=== PATIENT | female | born 1940 | race Caucasian/White ===

== ENCOUNTER 2018-12-03 09:15 | Observation (INO) | payer OTHER ==
--- OUTSIDE RECORDS SUMMARY | 2018-12-03 09:18 | XMS REPORT | Clinical Summary ---
:1940 Author Organization [facility] [employer] Address [address] [place] [address] Care Team Providers Name Role Phone Natalya Lovett MD Primary Care Provider Allergies No Known Allergies Medications Medication Sig Dispensed Refills Start Date End Date Status losartan (COZAAR) 25 Take 25 mg by mouth 1 02/10/2016 Active MG tablet every morning. ipratropium-albuterol Take 3 mL by 0 Active (DUO-NEB) 0.5-2.5 nebulization Every mg/mL nebulizer 4 hours while awake as needed (RT) for wheezing or shortness of breath. Every 4 to 6 hrs prn FERROUS SULFATE (IRON Take 65 mg by mouth 0 Active ORAL) 2 (two) times a day with meals. albuterol (PROAIR Inhale 2 puffs 0 Active HFA,PROVENTIL every 4 (four) HFA,VENTOLIN HFA) 90 hours as needed for mcg/actuation inhaler wheezing or shortness of breath. calcium Take 1 tablet by 0 Active carbonate-vitamin D3 mouth 2 (two) times (CALCIUM 600 + D,3,) a day. 600 mg(1,500mg) -400 unit per tablet CHOLECALCIFEROL, Take 800 tablets by 0 Active VITAMIN D3, (VITAMIN mouth daily. D3 ORAL) beclomethasone (QVAR) Inhale 1 puff 2 0 Active 80 mcg/actuation (two) times a day. inhaler escitalopram TAKE 1 TABLET(10 30 tablet 0 05/15/2017 Active (LEXAPRO) 10 MG MG) BY MOUTH DAILY tabletIndications: Recurrent major depressive disorder, remission status unspecified (HCC) Active Problems Problem Noted Date Asthma exacerbation 11/28/2016 Hair loss 05/18/2016 Encounters Date Type Specialty Care Team Description 04/25/2018 Transcribe Orders Access Natalya Lovett Breast cancer MD Shannen screening (Primary Dx) 03/07/2018 Refill Internal Medicine [facility], Recurrent major MD Angelique depressive disorder, remission status unspecified after 12/02/2017 Immunizations Name Dates Previously Given Next Due Influenza Trivalent 05/15/2015 Pneumococcal Conjugate 13-Valent 05/15/2015 Social History Tobacco Use Types Packs/Day Years Used Date Never Smoker Smokeless Tobacco: Never Used Alcohol Use Drinks/Week oz/Week Comments No Sex Assigned at Date Recorded Not on file Job Start Date Occupation Industry Not on file Not on file Not on file Travel History Travel Start Travel End No recent travel history available. Last Filed Vital Signs Not on file Plan of Treatment Health Maintenance Due Date Last Done Comments SHINGLES VACCINES (#1) 1988 65+ PNEUMOCOCCAL VACCINE (2 of 2 - PPSV23) 05/15/2016 05/15/2015 INFLUENZA VACCINE 04/04/2018 05/15/2015 PNEUMOCOCCAL POLYSACCHARIDE VACCINE AGE 65 AND OVER Completed 05/15/2015 Results Not on fileafter 12/02/2017 Insurance Payer Benefit Plan / Group Subscriber ID Type Phone Address MEDICARE MEDICARE PART A AND B xxxxxxxxxx Medicare [place], [place] Guarantor Name Account Type Relation to Date of Phone Billing Patient Address Sahra High Personal/Family Self 1940 [address] ([address]) [address] [place] [address] Sahra High Personal/Family Self 1940 [address] [place] [address] Sahra High Personal/Family Self 1940 [address] ([address] [place] [address] Advance Directives Patient has advance care planning documents on file. For more information, please contact:[place] [address]
--- OUTSIDE RECORDS SUMMARY | 2018-12-03 09:18 | XMS REPORT ---
:1940 Author Organization [facility] Address [address] [place] [address] Care Team Providers Name Role Phone Unavailable Unavailable Unavailable Payers Payer Name Policy Type Policy Number Effective Date Expiration Date Problems This patient has no known problems. Allergies, Adverse Reactions, Alerts Allergy Allergy Status Severity Reaction(s) Onset Inactive Treating Comments Name Type Date Date Clinician No Known DA Active U 2018-0619 00:00:0 0 CEFIDINE DA Active U 2016-03 00:00:0 0 Medications This patient has no known medications.
--- OUTSIDE RECORDS SUMMARY | 2018-12-03 09:18 | XMS REPORT ---
:1940 Author Organization [employer] Care Team Providers Name Role Phone Nilesh Galloway Provider Role Unavailable Allergies, Adverse Reactions, Alerts Substance Reaction Event Type N.K.D.A. 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 Active of extremities with intermittent claudication, bilateral legs Assessment Precordial pain R07.2 Active Medications Medication Code Code Instructions Start End Status Dosage System Date Date Ventolin HFA [facility] [id number] 108 (90 Base) Active 2 puffs as MCG/ACT needed Inhalation every 4 hrs Albuterol NDC 0 Active not defined Losartan ND 02336909947 25 MG Orally Active 1 tablet Potassium twice a day (bid) (take night dose if systolic BP is over 150) Lexapro ND 33740563213 10 MG Orally Active 1 tablet Once a day Nebulizer NDC 0 Oral Active 1 tab Vital Signs Date/Time: November 21, 2016 BMI 19.53 Index Weight 100 lbs Height 5'0 in Cardiac Monitoring Heart Rate 92 /min Blood Pressure Diastolic 78 mm Hg Blood Pressure Systolic 128 mm Hg Results No Known Results Summary Purpose eClinicalWorks Submission
--- OUTSIDE RECORDS SUMMARY | 2018-12-03 09:18 | XMS REPORT | Continuity of Care Document ---
:1940 Author Organization Interface Problems Problem Status Onset Classification Date Comments Source Date Reported Uncomplicated Active Problem 07/18/2017 Ahmed asthma, unspecified Ahmed asthma severity Atheroscler-limb&cla Active Problem 07/18/2017 Ahmed udic Ahmed Benign hypertensive Active Problem 07/18/2017 Ahmed heart disease Ahmed without congestive heart failure Other symptoms Active Diagnosis 07/18/2017 Ahmed involving Ahmed cardiovascular system Atherosclerosis of Active Diagnosis 07/18/2017 Ahmed [place] [facility] extremities with intermittent claudication, bilateral legs Precordial pain Active Diagnosis 07/18/2017 Ahmed Ahmed Depression, Active Diagnosis 07/18/2017 Ahmed unspecified Ahmed depression type Abnormal Active Diagnosis 07/18/2017 Ahmed electrocardiogram Ahmed Medications Medication Details Route Status Patient Ordering Order Source Instructions Provider Date Ventolin HFA 2 puffs as Inhalation Active 108 (90 Base) Ahmed Ahmed needed MCG/ACT Ahmed Inhalation every 4 hrs Albuterol not NA Active Ahmed Ahmed defined Ahmed Losartan 1 tablet Orally Active 25 MG Orally Ahmed Ahmed Potassium twice a day Ahmed (bid) (take night dose if systolic BP is over 150) Lexapro 1 tablet Orally Active 10 MG Orally Ahmed Ahmed Once a day Ahmed Nebulizer 1 tab Oral Active Oral Ahmed Ahmed Ahmed Allergies, Adverse Reactions, Alerts Substance Category Reaction Severity Reaction Status Date Comments Source type Reported N.K.D.A. Adverse Info Not Adverse Active Ahmed Reaction Available Reaction 7 Ahmed Immunizations Immunization Date Given Site Status Last Updated Comments Source Results Order Results Value Reference Date Interpretation Comments Source Name Range Vital Signs Vital Sign Value Date Comments Source Weight 100 11/21/2016 Ahmed Ahmed Heart Rate 92 11/21/2016 Ahmed Ahmed Diastolic (mm Hg) 78 11/21/2016 Ahmed Ahmed Systolic (mm Hg) 128 11/21/2016 Ahmed Ahmed Weight 100 10/19/2016 Ahmed Ahmed Heart Rate 69 10/19/2016 Ahmed Ahmed Diastolic (mm Hg) 72 10/19/2016 Ahmed Ahmed Systolic (mm Hg) 104 10/19/2016 Nilesh Galloway Encounters Location Location Encounter Encounter Reason Attending ADM DC Status Source Details Type Number For Provider Date Date Visit Outpatient [id number] [facility] 12[facility]15 [facility] Outpatient [id number] [facility] 12[facility]21 [facility] Outpatient [id number] [facility] 02[facility]09 [facility] [place] Procedures Procedure Code Date Perfomer Comments Source
--- OUTSIDE RECORDS SUMMARY | 2018-12-03 09:18 | XMS REPORT ---
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
--- OUTSIDE RECORDS SUMMARY | 2018-12-03 09:18 | XMS REPORT ---
:1940 Author Organization [employer] Care Team Providers Name Role Phone Nilesh Galloway Provider Role Unavailable Allergies, Adverse Reactions, Alerts Substance Reaction Event Type N.K.D.A. 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 without congestive heart failure Assessment Other symptoms involving R09.89 Active cardiovascular system Assessment 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 Assessment Precordial pain R07.2 Active Assessment Abnormal electrocardiogram R94.31 Active Medications Medication Code Code Instructions Start End Status Dosage System Date Date Albuterol NDC 0 Active not defined Lexapro NDC 72127778978 10 MG Orally Active 1 tablet Once a day Losartan NDC 88692597490 25 MG Orally Active 1 tablet Potassium twice a day (bid) (take night dose if systolic BP is over 150) Ventolin HFA ND 59457036807 108 (90 Base) Active 2 puffs as MCG/ACT needed Inhalation every 4 hrs Nebulizer NDC 0 Oral Active 1 tab Vital Signs Date/Time: Oct 19, 2016 BMI 19.53 Index Weight 100 lbs Height 5'0 in Cardiac Monitoring Heart Rate 69 /min Blood Pressure Diastolic 72 mm Hg Blood Pressure Systolic 104 mm Hg Results No Known Results Summary Purpose eClinicalWorks Submission
--- NOTE | 2018-12-03 09:28 | ER ---
Nurse's Notes [facility] Name: Sahra High Age: 78 yrs Sex: Female : 1940 Arrival Date: 12/03/2018 Time: 09:17 Bed 3 Private MD: Diagnosis: Chronic obstructive pulmonary disease with (acute) exacerbation;Tobacco use;Hypoxemia;Influenza due to other identified influenza virus-Flu B Presentation: 12/03 09:10 Presenting complaint: Pt here visiting family member, noticed by employee to be SOB, + hb labored breathing, brought to ED for eval. 09:10 Method Of Arrival: Wheelchair hb 09:10 Transition of care: patient was not received from another setting of care. Onset of hb symptoms was December 03, 2018. Risk Assessment: Do you want to hurt yourself or someone else? Patient reports no desire to harm self or others. Care prior to arrival: None. 09:10 Acuity: LA NEAN 2 hb 09:10 Presenting complaint: brought to the ED via wheelchair by hospital staff. Pt was going dm5 to see her daughter and became short of breath. Pt states she is always short of breath but that it was worse this morning. Pt has productive cough. Pt is wheezing and has labored breathing. Transition of care: patient was not received from another setting of care. 09:10 Method Of Arrival: Wheelchair dm5 Historical: - Allergies: 09:58 No Known Allergies; hb - Home Meds: 09:58 escitalopram oxalate 10 mg Oral tab 1 tab once daily [Active]; losartan 25 mg Oral tab hb 1 tab 2 times per day [Active]; - PMHx: 09:58 Depression; Hypertension; hb - PSHx: 09:58 Hysterectomy; sinus sx 2017; hb - Immunization history:: Adult Immunizations up to date. - Family history:: not pertinent. - Social history:: Smoking status: Patient uses tobacco products, smokes one-half pack cigarettes per day. Screenin:51 Abuse screen: Denies threats or abuse. Denies injuries from another. Nutritional hb screening: No deficits noted. Tuberculosis screening: No symptoms or risk factors identified. Fall Risk None identified. Assessment: 09:20 General: Appears distressed, Behavior is cooperative, anxious. Pain: Denies pain. hb Neuro: Level of Consciousness is awake, alert, obeys commands, Oriented to person, place, time, situation. Cardiovascular: Capillary refill < 3 seconds Patient's skin is warm and dry. Respiratory: Airway is patent Respiratory effort is even, unlabored, Respiratory pattern is regular, symmetrical, Breath sounds are diminished Breath sounds with rhonchi Breath sounds with wheezes. GI: No signs and/or symptoms were reported involving the gastrointestinal system. : No signs and/or symptoms were reported regarding the genitourinary system. EENT: No signs and/or symptoms were reported regarding the EENT system. Derm: Skin is intact, is healthy with good turgor. Musculoskeletal: No signs and/or symptoms reported regarding the musculoskeletal system. 10:00 Reassessment: Patient appears in no apparent distress at this time. No changes from hb previously documented assessment. Patient and/or family updated on plan of care and expected duration. Pain level reassessed. 11:00 Reassessment: Patient appears in no apparent distress at this time. No changes from hb previously documented assessment. Patient and/or family updated on plan of care and expected duration. Pain level reassessed. VSS. 12:00 Reassessment: Patient appears in no apparent distress at this time. Patient and/or hb family updated on plan of care and expected duration. Pain level reassessed. VSS. Admission ordered, awaiting room assignment at this time. Vital Signs: 09:15 BP 159 / 108; Pulse 105; Resp 24; Temp 98.4; Pulse Ox 91% on R/A; Pain 0/10; hb 10:15 BP 155 / 84; Pulse 99; Resp 14 S; Pulse Ox 100% on Nebulizer Mask; hb 11:31 BP 137 / 82; Pulse 103 MON; Resp 16; Pulse Ox 100% on R/A; sg 13:11 BP 123 / 64; Pulse 100 MON; Resp 18; Temp 98.4; Pulse Ox 97% on R/A; sg [place] Coma Score: 13:11 Eye Response: spontaneous(4). Verbal Response: oriented(5). Motor Response: obeys sg commands(6). Total: 15. ED Course: 09:08 Inserted saline lock: 20 gauge in right antecubital area, using aseptic technique. hb Blood collected. 09:17 Patient arrived in ED. yahir 09:17 Bran Salomon MD is Attending Physician. yahir 09:21 EKG done, by senior cytogenetic technologist. reviewed by Bran Salomon MD. at1 09:25 Jarvis Gallegos MD is Hospitalizing Provider. yahir 09:30 Patient has correct armband on for positive identification. Placed in gown. Bed in low hb position. Call light in reach. Side rails up X 1. 09:48 Danna Rosado, RN is Primary Nurse. hb 09:50 Triage completed. hb 09:50 Arm band placed on. hb 10:02 X-ray completed. Portable x-ray completed in exam room. Patient tolerated procedure mh1 well. 10:07 XRAY Chest (1 view) In Process Unspecified. EDMS Administered Medications: 09:45 Drug: NS 0.9% 500 ml Route: IV; Rate: bolus; Site: right antecubital; sg 10:30 Follow up: Response: No adverse reaction; IV Status: Completed infusion; IV Intake: sg 500ml 09:45 Drug: SOLU-Medrol 125 mg Route: IVP; Site: right antecubital; sg 11:37 Follow up: Response: No adverse reaction sg 09:45 Drug: Rocephin - (cefTRIAXone) 1 grams Route: IVPB; Infused Over: 30 mins; Site: right sg antecubital; 10:30 Follow up: Response: No adverse reaction; IV Status: Completed infusion sg 09:45 Drug: Xopenex 3.75 mg Route: Inhalation; sg 09:45 Drug: AtroVENT Aerosol 0.5 mg Route: Inhalation; sg 09:45 Drug: Zithromax 500 mg Route: IVPB; Infused Over: 1 hrs; Site: right antecubital; hb 11:00 Follow up: Response: No adverse reaction; IV Status: Completed infusion sg 09:45 Drug: Decadron - Dexamethasone 8 mg Route: IVP; Site: right antecubital; hb 11:34 Follow up: Response: No adverse reaction; Marked relief of symptoms sg 09:45 Drug: Pepcid 20 mg Route: IVP; Site: right antecubital; sg 10:30 Follow up: Response: No adverse reaction sg 10:16 Drug: NS 0.9% 1000 ml Route: IV; Rate: 125 ml/hr; Site: right antecubital; hb 11:00 Drug: Tamiflu 75 mg Route: PO; sg 11:33 Follow up: Response: No adverse reaction; Marked relief of symptoms sg Intake: 10:30 IV: 500ml; Total: 500ml. sg Outcome: 09:28 Decision to Hospitalize by Provider. [facility] 13:34 Patient left the ED. sg Signatures: Dispatcher [employer] Marisa Crocker, RN RN Michele Villela RN RN Bran Elizalde MD MD cha Harvey, Martha 1 Ynes Hernandez, host/hostess head EKG [facility] Danna Rosado RN RN hb
--- NOTE | 2018-12-03 09:28 | EDPHYS ---
Physician Documentation [facility] Name: Sahra High Age: 78 yrs Sex: Female : 1940 Arrival Date: 12/03/2018 Time: 09:17 Bed 3 Private MD: ED Physician Bran Salomon HPI: 12/03 09:20 This 78 yrs old Female presents to ER via Unassigned with complaints of copd yahir exacerbation, cant breath. 09:20 The patient has shortness of breath at rest, with light activity. Onset: The yahir symptoms/episode began/occurred 2 day(s) ago. Duration: The symptoms are continuous, and are steadily getting worse, and are markedly worse than the original presentation. The patient's shortness of breath is aggravated by exertion, talking, walking, is alleviated by nebulizer treatment, pursed lip breathing, rest, sitting up, application of supplemental oxygen. The patient or guardian reports cough, difficulty breathing. Modifying factors: The symptoms are alleviated by remaining still, the symptoms are aggravated by activity, cold environment, lying flat, talking. Associated signs and symptoms: The patient has no apparent associated signs or symptoms. Severity of symptoms: At their worst the symptoms were moderate in the emergency department the symptoms are unchanged. Historical: - Allergies: 09:58 No Known Allergies; hb - Home Meds: 09:58 escitalopram oxalate 10 mg Oral tab 1 tab once daily [Active]; losartan 25 mg Oral tab hb 1 tab 2 times per day [Active]; - PMHx: 09:58 Depression; Hypertension; hb - PSHx: 09:58 Hysterectomy; sinus sx 2017; hb - Immunization history:: Adult Immunizations up to date. - Family history:: not pertinent. - Social history:: Smoking status: Patient uses tobacco products, smokes one-half pack cigarettes per day. ROS: 09:22 Constitutional: Negative for fever, chills, and weight loss, Eyes: Negative for injury, yahir pain, redness, and discharge, ENT: Negative for injury, pain, and discharge, Neck: Negative for injury, pain, and swelling, Cardiovascular: Negative for chest pain, palpitations, and edema, Abdomen/GI: Negative for abdominal pain, nausea, vomiting, diarrhea, and constipation, Back: Negative for injury and pain, : Negative for injury, bleeding, discharge, and swelling, MS/Extremity: Negative for injury and deformity, Skin: Negative for injury, rash, and discoloration, Neuro: Negative for headache, weakness, numbness, tingling, and seizure, Psych: Negative for depression, anxiety, suicide ideation, homicidal ideation, and hallucinations, Allergy/Immunology: Negative for hives, rash, and allergies, Endocrine: Negative for neck swelling, polydipsia, polyuria, polyphagia, and marked weight changes, Hematologic/Lymphatic: Negative for swollen nodes, abnormal bleeding, and unusual bruising. 09:22 Respiratory: Positive for cough, shortness of breath, wheezing, inspiratory, expiratory. Exam: :22 Constitutional: This is a well developed, well nourished patient who is awake, alert, yahir and in no acute distress. Head/Face: Normocephalic, atraumatic. Eyes: Pupils equal round and reactive to light, extra-ocular motions intact. Lids and lashes normal. Conjunctiva and sclera are non-icteric and not injected. Cornea within normal limits. Periorbital areas with no swelling, redness, or edema. ENT: Nares patent. No nasal discharge, no septal abnormalities noted. Tympanic membranes are normal and external auditory canals are clear. Oropharynx with no redness, swelling, or masses, exudates, or evidence of obstruction, uvula midline. Mucous membranes moist. Neck: Trachea midline, no thyromegaly or masses palpated, and no cervical lymphadenopathy. Supple, full range of motion without nuchal rigidity, or vertebral point tenderness. No Meningismus. Chest/axilla: Normal chest wall appearance and motion. Nontender with no deformity. No lesions are appreciated. Cardiovascular: Regular rate and rhythm with a normal S1 and S2. No gallops, murmurs, or rubs. Normal PMI, no JVD. No pulse deficits. Abdomen/GI: Soft, non-tender, with normal bowel sounds. No distension or tympany. No guarding or rebound. No evidence of tenderness throughout. Back: No spinal tenderness. No costovertebral tenderness. Full range of motion. Female : Normal external genitalia. Skin: Warm, dry with normal turgor. Normal color with no rashes, no lesions, and no evidence of cellulitis. MS/ Extremity: Pulses equal, no cyanosis. Neurovascular intact. Full, normal range of motion. Neuro: Awake and alert, GCS 15, oriented to person, place, time, and situation. Cranial nerves II-XII grossly intact. Motor strength 5/5 in all extremities. Sensory grossly intact. Cerebellar exam normal. Normal gait. Psych: Awake, alert, with orientation to person, place and time. Behavior, mood, and affect are within normal limits. 09:22 Respiratory: moderate respiratory distress is noted, Respirations: normal, Breath sounds: decreased breath sounds, rhonchi, + upper airway congestion. wheezing: inspiratory expiratory Vital Signs: 09:15 BP 159 / 108; Pulse 105; Resp 24; Temp 98.4; Pulse Ox 91% on R/A; Pain 0/10; hb 10:15 BP 155 / 84; Pulse 99; Resp 14 S; Pulse Ox 100% on Nebulizer Mask; hb 11:31 BP 137 / 82; Pulse 103 MON; Resp 16; Pulse Ox 100% on R/A; sg 13:11 BP 123 / 64; Pulse 100 MON; Resp 18; Temp 98.4; Pulse Ox 97% on R/A; sg Palmer Coma Score: 13:11 Eye Response: spontaneous(4). Verbal Response: oriented(5). Motor Response: obeys sg commands(6). Total: 15. MDM: 09:17 Patient medically screened. [facility] 09:22 Data reviewed: vital signs, nurses notes, lab test result(s), EKG, radiologic studies, yahir plain films. 12/03 09:20 Order name: Basic Metabolic Panel [facility] 12/03 09:20 Order name: CBC with Diff; Complete Time: 10:50 [facility] 12/03 09:20 Order name: LFT's; Complete Time: 10:50 [facility] 12/03 09:20 Order name: Magnesium; Complete Time: 10:50 [facility] 12/03 09:20 Order name: NT PRO-BNP; Complete Time: 10:50 [facility] 12/03 09:20 Order name: PT-INR; Complete Time: 10:50 [facility] 12/03 09:20 Order name: Troponin (emerg Dept Use Only); Complete Time: 10:50 [facility] 12/03 09:20 Order name: XRAY Chest (1 view); Complete Time: 10:24 [facility] 12/03 09:20 Order name: Blood Culture Adult (2) [facility] 12/03 09:20 Order name: Procalcitonin; Complete Time: 10:50 yahir 12/03 09:21 Order name: Basic Metabolic Panel; Complete Time: 10:50 [facility] 12/03 09:22 Order name: Influenza Screen (a \T\ B); Complete Time: 10:24 [facility] 12/03 09:35 Order name: ABG; Complete Time: 10:50 [facility] 12/03 11:12 Order name: Urine Dipstick--Ancillary (enter results) 12/03 09:20 Order name: EKG; Complete Time: 09:21 [facility] 12/03 09:20 Order name: Cardiac monitoring; Complete Time: 09:56 [facility] 12/03 09:20 Order name: EKG - Nurse/Tech; Complete Time: 09:56 [facility] 12/03 09:20 Order name: IV Saline Lock; Complete Time: 09:56 [facility] 12/03 09:20 Order name: Labs collected and sent; Complete Time: 09:56 [facility] 12/03 09:20 Order name: O2 Per Protocol; Complete Time: 09:56 [facility] 12/03 09:20 Order name: O2 Sat Monitoring; Complete Time: 09:56 [facility] 12/03 09:45 Order name: Labs - recollect needed; Complete Time: 10:14 bd Administered Medications: 09:45 Drug: NS 0.9% 500 ml Route: IV; Rate: bolus; Site: right antecubital; sg 10:30 Follow up: Response: No adverse reaction; IV Status: Completed infusion; IV Intake: sg 500ml 09:45 Drug: SOLU-Medrol 125 mg Route: IVP; Site: right antecubital; sg 11:37 Follow up: Response: No adverse reaction sg 09:45 Drug: Rocephin - (cefTRIAXone) 1 grams Route: IVPB; Infused Over: 30 mins; Site: right sg antecubital; 10:30 Follow up: Response: No adverse reaction; IV Status: Completed infusion sg 09:45 Drug: Xopenex 3.75 mg Route: Inhalation; sg 09:45 Drug: AtroVENT Aerosol 0.5 mg Route: Inhalation; sg 09:45 Drug: Zithromax 500 mg Route: IVPB; Infused Over: 1 hrs; Site: right antecubital; hb 11:00 Follow up: Response: No adverse reaction; IV Status: Completed infusion sg 09:45 Drug: Decadron - Dexamethasone 8 mg Route: IVP; Site: right antecubital; hb 11:34 Follow up: Response: No adverse reaction; Marked relief of symptoms sg 09:45 Drug: Pepcid 20 mg Route: IVP; Site: right antecubital; sg 10:30 Follow up: Response: No adverse reaction sg 10:16 Drug: NS 0.9% 1000 ml Route: IV; Rate: 125 ml/hr; Site: right antecubital; hb 11:00 Drug: Tamiflu 75 mg Route: PO; sg 11:33 Follow up: Response: No adverse reaction; Marked relief of symptoms sg Disposition: 12/03/18 09:28 Hospitalization ordered by Jarvis Gallegos for Inpatient Admission. Preliminary diagnosis are Chronic obstructive pulmonary disease with (acute) exacerbation, Tobacco use, Hypoxemia, Influenza due to other identified influenza virus - Flu B. - Bed requested for Telemetry/MedSurg (Inpatient). - Status is Inpatient Admission. sg - Condition is Fair. - Problem is new. - Symptoms have improved. UTI on Admission? No Signatures: Dispatcher [employer] EDMS Gretchen Wing Diana, RN RN Michele Espinoza RN RN Bran Salomon MD MD cha Baxter, Heather, RN RN Corrections: (The following items were deleted from the chart) 10:24 09:28 Hospitalization Ordered by Jarvis Gallegos MD for Inpatient Admission. Preliminary yahir diagnosis is Chronic obstructive pulmonary disease with (acute) exacerbation; Tobacco use; Hypoxemia. Bed requested for Telemetry/MedSurg (Inpatient). Status is Inpatient Admission. Condition is Fair. Problem is new. Symptoms have improved. UTI on Admission? No. yahir 12:40 10:24 12/03/2018 09:28 Hospitalization Ordered by Jarvis Gallegos MD for Inpatient dw Admission. Preliminary diagnosis is Chronic obstructive pulmonary disease with (acute) exacerbation; Tobacco use; Hypoxemia; Influenza due to other identified influenza virus - Flu B. Bed requested for Telemetry/MedSurg (Inpatient). Status is Inpatient Admission. Condition is Fair. Problem is new. Symptoms have improved. UTI on Admission? No. yahir 13:34 12:40 12/03/2018 09:28 Hospitalization Ordered by Jarvis Gallegos MD for Inpatient sg Admission. Preliminary diagnosis is Chronic obstructive pulmonary disease with (acute) exacerbation; Tobacco use; Hypoxemia; Influenza due to other identified influenza virus - Flu B. Bed requested for Telemetry/MedSurg (Inpatient). Status is Inpatient Admission. Condition is Fair. Problem is new. Symptoms have improved. UTI on Admission? No. dw
[2018-12-03] MEDS ORDERED: DEXAMETHASONE 4 MG/ML VIAL ONE (09:44)
[2018-12-03] MEDS ORDERED: METHYLPREDNISOLONE 125 MG INJ ONE (09:44)
[2018-12-03] MEDS ORDERED: LEVALBUTEROL 1.25 MG/3 ML NEB ONE (09:44)
[2018-12-03] MEDS ORDERED: IPRATROPIUM BROM 0.5MG/2.5ML ONE (09:44)
[2018-12-03] MEDS ORDERED: FAMOTIDINE 20 MG/2 ML VIAL IV ONE (09:45)
[2018-12-03] MEDS ORDERED: CEFTRIAXONE/SWI 1gm 1 GM/10 ML SYR ONE (09:45)
[2018-12-03] MEDS ORDERED: NA CHLORIDE 0.9% 1,000 ML ONE (09:45)
[2018-12-03 09:56] LABS: Arterial Blood Carboxyhemoglob 0.8 % (0-1.5); Blood Gas Oxyhemoglobin 90.7 % (94-97); Blood O2 Saturation 92.3 % (92-98.5)
[2018-12-03] MEDS ORDERED: AZITHROMYCIN IV 500 MG in NA CHLORIDE 0.9% 250 ML IVPB ONE (10:00)
[2018-12-03 10:17] LABS: Protime INR 1.17
[2018-12-03 10:18] LABS: Absolute Lymphocytes (CBC) 1.3 K/uL (0.7-4.9); Absolute Monocytes 0.4 K/uL (0.1-1.3); Absolute Neutrophil 2.6 K/uL (1.8-8.0); Basophils % 1.7 % (0-1.3); Eosinophils % 8.8 % (0-4.4); Hematocrit 37.3 % (36.0-45.0); Lymphocytes % 27.5 % (15.3-44.8); MPV 9.7 fL (7.6-11.3); Monocytes % 8.3 % (3.3-12.3)
--- NOTE | 2018-12-03 10:22 | RAD REPORT ---
EXAM DESCRIPTION: RAD - Chest Single View - 12/03/2018 10:10 am CLINICAL HISTORY: COPD Chest pain. COMPARISON: Chest Single View dated 07/31/2017; CHEST PA AND LAT 2 VIEW dated 01/20/2015; CHEST SINGL E VIEW dated 01/07/2015; CHEST SINGLE VIEW dated 05/24/2014 FINDINGS: Portable technique limits examination quality. The lungs are grossly clear. The heart is normal in size. No displaced fractures.Pleural thickening i s present bilaterally. IMPRESSION: No acute intrathoracic process suspected.
[2018-12-03 10:33] LABS: ALT/SGPT 19 U/L (12-78); AST/SGOT 16 U/L (15-37); Albumin 3.5 g/dL (3.4-5.0); Alkaline Phosphatase 82 U/L (45-117); BUN Blood Urea Nitrogen 21 mg/dL (7-18); Bicarbonate 26 mmol/L (21-32); Bilirubin Direct 0.1 mg/dL (0-0.2); Bilirubin Total 0.5 mg/dL (0.2-1.0); Glucose Level 87 mg/dL (74-106); Magnesium 2.1 mg/dL (1.8-2.4); NT PRO-BNP 158 pg/mL (<450); Potassium 3.7 mmol/L (3.5-5.1); Protein, Total 6.2 g/dL (6.4-8.2); Sodium Level 144 mmol/L (136-145); Troponin (Emerg Dept Use Only) < 0.02 ng/mL (0.0-0.045)
[2018-12-03] MEDS ORDERED: OSELTAMIVIR 75 MG CAP ONE (10:49)
[2018-12-03 11:25] LABS: Urine Blood NEGATIVE (NEG); Urine Glucose NEGATIVE (NEG); Urine Protein NEGATIVE (NEG)
[2018-12-03] MEDS ORDERED: ONDANSETRON 4 MG/2 ML VIAL IV PRN (14:15)
[2018-12-03 15:28] VITALS: BMI 21.6
[2018-12-03] MEDS ORDERED: POTASSIUM CL SA 10 MEQ TAB PO ONE (17:00)
[2018-12-03] MEDS: ALBUTEROL 2.5 MG/3 ML NEB SOL NEB SCH (19:53)
[2018-12-03] MEDS: IPRATROPIUM BROM 0.5MG/2.5ML NEB SCH (19:53)
--- NOTE | 2018-12-03 20:09 | P.HP ---
Certification for Inpatient Patient admitted to: Observation With expected LOS: <2 Midnights Practitioner: I am a practitioner with admitting privileges, knowledge of patient current condition, hospital course, and medical plan of care. Services: Services provided to patient in accordance with Admission requirements found in Title 42 Section 412.3 of the Code of Federal Regulations Patient History Date of Service: 12/03/18 Primary Care Provider: Dr. Lovett Reason for admission: Shortness of breath History of Present Illness: This is a 78-year-old female with a history of COPD/asthma, hypertension admitted for shortness of breath. Per patient, this shortness of breath has been progressively worse for the past few days but this morning she could not walk could not breathe. Her albuterol breathing treatments did not help her. Therefore she came to the ER. She denied any fevers, chills, chest pain, headache, dizziness, vision changes, GI or complaints. In the ER, she was hypoxic and with increased work of breathing. Her labs were unremarkable. Her ABG was remarkable for oxygenation level of 66.4, low. She was found to be fluid positive. Her propranolol was normal. Her chest x-ray was negative for any acute abnormalities. In the ER, she was placed on BiPAP, which helped improve her symptoms. She was also given azithromycin, Rocephin, Decadron 8 mg, Pepcid, Solu-Medrol 125 mg and Tamiflu along with a 1 L normal saline bolus. At the time of my exam, she was alert oriented x3, hemodynamically stable, and in no acute distress. She was satting well on room air. Allergies No Known Drug Allergies Allergy (Unverified 01/07/15 04:54) Unknown No Known Allergies Allergy (Uncoded 07/31/17 21:55) Unknown Home Medications: Albuterol Neb [Proventil 0.083% Neb Soln] 1 inh IN QID 12/03/18 Candesartan Cilexetil [Atacand] 4 mg PO DAILY 12/03/18 Escitalopram Oxalate [Lexapro] 10 mg PO DAILY 12/03/18 - Past Medical/Surgical History Has patient received pneumonia vaccine in the past: Yes Diabetic: No -: COPD -: Asthma -: HTN -: GERD -: HYST -: Trigger finger release x5 - Social History Smoking Status: Never smoker Alcohol use: No CD- Drugs: No Caffeine use: Yes Place of Residence: Home Review of Systems 10-point ROS is otherwise unremarkable Physical Examination - Vital Signs Temperature: 98.1 F Blood Pressure: 120/70 Pulse: 98 Respirations: 18 Pulse Ox (%): 93 - Physical Exam General: Alert, In no apparent distress, Oriented x3 HEENT: Atraumatic, PERRLA, Mucous membr. moist/pink, EOMI, Sclerae nonicteric Neck: Supple, 2+ carotid pulse no bruit, No LAD, Without JVD or thyroid abnormality Respiratory: Clear to auscultation bilaterally, Normal air movement Cardiovascular: Regular rate/rhythm, Normal S1 S2 Gastrointestinal: Normal bowel sounds, No tenderness Musculoskeletal: No tenderness Integumentary: No rashes Neurological: Normal gait, Normal speech, Normal strength at 5/5 x4 extr, Normal tone, Normal affect Lymphatics: No axilla or inguinal lymphadenopathy - Studies Laboratory Data (last 24 hrs) 12/03/18 10:00: PT 13.7 H, INR 1.17 12/03/18 10:00: WBC 4.8, Hgb 12.4, Hct 37.3, Plt Count 250 12/03/18 10:00: Sodium 144, Potassium 3.7, BUN 21 H, Creatinine 1.01, Glucose 87 , Magnesium 2.1, Total Bilirubin 0.5, AST 16, ALT 19, Alkaline Phosphatase 82 Microbiology Data (last 24 hrs): 12/03/18 09:08 Nasopharnyx Influenza Type A Antigen Screen - Final 12/03/18 09:08 Nasopharnyx Influenza Type B Antigen Screen - Final Assessment and Plan - Problems (Diagnosis) (1) Hypertension Current Visit: Yes Status: Chronic Qualifiers: Hypertension type: essential hypertension Qualified Code(s): I10 - Essential (primary) hypertension (2) Influenza B Current Visit: Yes Status: Acute (3) Acute exacerbation of chronic obstructive airways disease Current Visit: No Status: Active - Plan Admit to floor with tele. Start Solu-Medrol, breathing treatments as needed, Tamiflu. No need for antibiotics at this time. Provide oxygen as needed. BiPAP as needed. Will repeat a chest x-ray tomorrow. Physical therapy consult placed Restart home medications DVT prophylaxis: Lovenox GI prophylaxis: None Diet: Heart healthy Disposition: Pending symptomatic improvement. Possible discharge home in the next 24-48 hr on oral steroids, and Tamiflu - Advance Directives Does patient have a Living Will: Yes Does patient have a Durable POA for Healthcare: Yes Time Spent Managing Pts Care (In Minutes): 55
[2018-12-03] MEDS: OSELTAMIVIR 75 MG CAP PO SCH (21:26)
[2018-12-04] MEDS: METHYLPREDNISOLONE 40 MG INJ IV SCH ×2 (01:22→08:36)
[2018-12-04] MEDS ORDERED: ACETAMINOPHEN 500 MG TAB PO PRN (01:59)
[2018-12-04] MEDS: IPRATROPIUM BROM 0.5MG/2.5ML NEB SCH ×2 (02:00→08:50)
[2018-12-04] MEDS: ALBUTEROL 2.5 MG/3 ML NEB SOL NEB SCH ×2 (02:00→08:50)
[2018-12-04 04:42] LABS: Absolute Lymphocytes (CBC) 0.5 K/uL (0.7-4.9); Absolute Monocytes 0.1 K/uL (0.1-1.3); Absolute Neutrophil 2.9 K/uL (1.8-8.0); Basophils % 0.1 % (0-1.3); Hematocrit 34.4 % (36.0-45.0); Lymphocytes % 13.2 % (15.3-44.8); MPV 9.9 fL (7.6-11.3); Monocytes % 1.5 % (3.3-12.3); RBC Red Blood Cell Count 3.73 M/uL (3.86-4.86)
[2018-12-04 04:56] LABS: Albumin 3.4 g/dL (3.4-5.0); Bilirubin Total 0.2 mg/dL (0.2-1.0); Potassium 3.9 mmol/L (3.5-5.1)
[2018-12-04 05:14] LABS: Blood Morphology Comment NOT SEEN (NOT SEEN); Platelet Estimate ADEQ; Urine White Blood Cell Casts OK
[2018-12-04 05:36] VITALS: TEMP 98.1
[2018-12-04] MEDS: ENOXAPARIN 40 MG/0.4 ML SQ SCH ×2 (08:36→08:49)
[2018-12-04] MEDS: OSELTAMIVIR 75 MG CAP PO SCH (08:37)
[2018-12-04 08:38] VITALS: BP 124/63
[2018-12-04] MEDS ORDERED: VALSARTAN 80 MG TAB PO SCH (09:00)
[2018-12-04] MEDS ORDERED: ESCITALOPRAM 20 MG TAB PO SCH (09:00)
[2018-12-04 11:47] VITALS: O2SAT 95
--- NOTE | 2018-12-05 05:10 | DS ---
Date of Discharge: 12/04/2018 Discharge Diagnoses: 1.Influenza B. 2.Acute COPD exacerbation. 3.Essential hypertension. 4.GERD without esophagitis. Code Status: Full code. Hospital Course: The patient is an 78-year-old female with past medical history of COPD, asthma, hyp ertension, comes in with shortness of breath. The patient was found to be flu positive. She was sta rted on Tamiflu. Chest x-ray was clear. She initially required BiPAP due to her low oxygenation on ABG, which showed a PO2 of 66. The patient was given IV steroids, IV antibiotics, and started on rosalina athing treatments. The patient's blood cultures did not show any growth. She responded well to amilcar tment. She was able to be weaned off oxygen and was saturating 95% on room air. Her white count was not elevated. The patient did not appear septic. Her procalcitonin was negative. The patient was able to ambulate without any difficulty. Her shortness of breath improved. The patient's chest x-ra y was also negative. The patient was then cleared for discharge. She did not have any further fever s, no signs of sepsis, no further tachypnea or hypoxia. The patient was then discharged home in a st able condition. Activity: As tolerated. Medications: As per medication reconciliation list. Finish off course of Tamiflu and Medrol Dosepak . Followup: Follow with primary care physician in 2-3 days. Return to ER for worsening condition. Diet: Heart healthy. Physical Examination: General: Awake, alert, oriented x3. No acute distress, elderly female. CV: S1, S2. Respiratory: Moving air well bilaterally. Abdomen: Soft, nontender, nondistended. Positive bowel sounds. Extremities: No clubbing, cyanosis, edema. Neuro: Nonfocal. SA/MODL Voice ID: [id number] Report ID: [id number]
--- NOTE | 2018-12-11 11:00 | EKG ---
Test Date: 2018-12-03 Test Time: 09:17:44 Recreation Therapy Aide: ZHANG MEASUREMENT RESULTS: Intervals: Rate: 108 MN: 152 QRSD: 72 QT: 336 QTc: 450 Lester: P: 77 MN: 152 QRS: 74 T: 58 INTERPRETIVE STATEMENTS: Sinus tachycardia with premature ventricular complexes Abnormal ECG Compared to ECG 01/07/2015 01:38:35 Sinus rhythm no longer present Electronically Signed On 12-03-18 12:00:52 CDT by Henrik Petty
== END 2018-12-04 11:33 | disposition home or self-care (01) ==
LOC: ER 09:15 → ERHOLD 11:26 → 4TH 13:02
PROVIDERS: ADMIT Family Medicine; ATTEND Family Medicine
DX: J10.1 Influenza due to other identified influenza virus with other respiratory manifestations (principal); J44.1 Chronic obstructive pulmonary disease with (acute) exacerbation; I10 Essential (primary) hypertension; K21.9 Gastro-esophageal reflux disease without esophagitis
CPT/HCPCS: 96365; 96368; 93005; 87040 ×2; 85025 ×2; 80048; 36415; 83735; 85610; 80076; 81003; 84484; 80053; 84145; 83880; 87804 ×2; 71045; 82805; 94760 ×2; 96375; 99284; J0456; J0696; J7030; J2930; J2405; J2920 ×2; G0378 ×2; J1650

== ENCOUNTER 2021-11-25 09:28 | Emergency (ER) | payer OTHER ==
--- OUTSIDE RECORDS SUMMARY | 2021-11-25 09:32 | XMS REPORT | Continuity of Care Document ---
:1940 Author Organization [facility] t Address [address] [place] [address] Care Team Providers Name Role Phone PREZAS Primary Care Physician Unavailable Aquino_B Attending Clinician Unavailable DHARA Attending Clinician Unavailable GERALD Attending Clinician Unavailable Sonny KENDRICK Attending Clinician Faisal Borrego MD Attending Clinician ZINA Attending Clinician Unavailable Raghu DOMINGUEZ Attending Clinician Unavailable Faisal Borrego MD Attending Clinician Unavailable [address] Room Attending Clinician Unavailable FAISAL BORREGO Attending Clinician Unavailable Abilio KENDRICK, P. 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 9-02 st asthma asthma 00:00: Hospita with with 00 l exacerbati exacerbati on on SOB SOB Disease Active [facility] (shortness (shortness 3-26 st of breath) of breath) 00:00: Ho spita 00 l Asthma Asthma Disease Active [facility] exacerbati exacerbati - st on on 00:00: Hospita 00 l Hair loss Hair loss Disease Active Met hodi 05-18 st 00:00: Hospita 00 l Depression Diagnosis Active 2017-07-18 Memoria , 04:00:42 l unspecifie Antoine n d Depression depression , type unspecifie d depression type Active Diagnosis 07/18/2017 Leonluisa Nilesh Abnormal Diagnosis Active 2017-07-18 M emoria electrocar 04:00:42 l diogram Abnormal Glory nn electrocar diogram Active Diagnosis 07/18/2017 Nilesh Galloway Uncomplica Problem Active 2017-07-18 M emoria yousfi 04:05:55 l asthma, Cameron unspecifie Uncomplica d asthma yousif severity asthma, unspecifie d asthma severity Active Problem 07/18/2017 Nilesh Galloway 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 M emoria r-limb&cla 04:05:55 l udic Cameron Atheroscle r-limb&cla udic Active Problem 07/18/2017 Nilesh Galloway Benign Problem Active 2017-07-18 Memor ia hypertensi 04:05:55 l ve heart 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 failure Active Problem 07/18/2017 Nilesh Galloway CALVILLO CALVILLO Disease Active [facility] (dyspnea (dyspnea Colleg e on on of exertion) exertion) Medi colten e Dizziness Dizziness Disease Active [facility] of Medicin e Hypertensi Hypertensi Disease Active [facility] [employer] [employer] of [facility] Asthma Asthma Disease Active [facility] of Medicin e Other Diagnosis Active 2017-07-18 Mem oria symptoms 04:05:55 l involving Other Antoine n cardiovasc symptoms ular involving system cardiovasc ular system Active Diagnosis 07/18/2017 Nilesh Galloway 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:05:55 l [place] 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 intermitte of nt extremitie claudicati s with on, intermitte bilateral nt legs claudicati on, bilateral legs Active Diagnosis 07/18/2017 Nilesh Galloway Precordial Diagnosis Active 2017-07-18 Memoria pain 04:05:55 l Cameron Precordial pain Active Diagnosis 07/18/2017 Nilesh Quinteroluisa Allergies, Adverse Reactions, Alerts Allergy Allergy Status Severity Reaction(s) Onset Inactive Treating Comm ents Source Name Type Date Date Clinician Ju Propensi Active Rash [facility] l Hcl ty to 325 College adverse 00:00: of reaction 00 Medicin s to e drug Pollen Propensi Active [facility] ty to 325 College adverse 00:00: of reaction 00 Medicin s to e substanc e NEBIVOLO Allergy Active Low Rash [facility] HCL 11-26 00:00: 00 Nebivolo Drug Active Rash [facility] Medical [address] [place] [address] No Known DA Active U 2017-09 [facility] Allergie 0-19 Clear s 00:00: [place] 00 [facility] CEFIDINE DA Active U [facility] 7-21 Clear 00:00: [place] 00 [facility] NO KNOWN Allergy Active [facility] Social History Social Habit Start Date Stop Date Quantity Comments Source History SDOH [facility] St[facility] Drinks History [facility] Alcohol Binge Hospital History SDSD [facility] Alcohol Comment Hospital History SDOH 2020-08-05 2020-08-05 1 [facility] Alcohol Frequency 00:00:00 00:00:00 Hospita l Alcohol intake 2020-08-04 2020-08-04 Lifetime [facility] 00:00:00 00:00:00 non-drinker Hospital (finding) Tobacco use and 2016-05-18 2016-05-18 Smokeless tobacco [facility] exposure 00:00:00 00:00:00 non-user Hospital Sex Ass[birth year] At [birth year] [facility] 00:00:00 00:00:00 Hospital Smoking Status Start Date Stop Date Source Never smoked tobacco [facility] Yenni ege of Medicine Medications Ordered Filled Start Stop Current Ordering Indication Dosage Frequency Signature Comments Components Source Medication Medication Date Date Medication? Clinician (SIG) Name Name IPRATROPIUM Yes .5mg Inhale 0.5 Carlos BROMIDE IN 2-17 mg by nose Col lege 09:13: daily. of 35 Medicin e Albuterol Yes Inhale by [facility] Sulfate 2-17 mouth. [place] (VENTOLIN 09:13: of HFA IN) 35 Medicin e Acetaminoph Yes Take by [facility] en (TYLENOL 2-17 mouth as Yenni ege ARTHRITIS 09:13: needed. of PAIN OR) 35 Medicin e escitalopra Yes 10mg Take 10 mg [facility] m (LEXAPRO) 2-17 by mouth Yenni ege 10 MG 09:13: daily. of tablet 35 Medicin e Acetaminoph 2020-09 Yes Take by [facility] en (TYLENOL 1-12 mouth as Yenni ege ARTHRITIS 10:26: needed. of PAIN OR) 03 Medicin e escitalopra 2020-09 Yes 10mg Take 10 mg Carlos m (LEXAPRO) 1-12 by mouth Yenni ege 10 MG 10:26: daily. of tablet 03 Medicin e IPRATROPIUM 2020-09 Yes .5mg Inhale 0.5 Carlos BROMIDE IN 1-12 mg by nose Col lege 10:26: daily. of 03 Medicin e Albuterol 2020-09 Yes Inhale by [facility] Sulfate 1-12 mouth. [place] (VENTOLIN 10:26: of HFA IN) 03 Medicin e losartan Yes 25mg Take 1 [facility] (COZAAR) 25 8-23 Tablet by Col lege MG tablet 00:00: mouth two of 00 times Medicin daily. e losartan Yes 25mg Take 1 [facility] (COZAAR) 25 8-23 Tablet by Col lege MG tablet 00:00: mouth two of 00 times Medicin daily. e escitalopra Yes [id number] TAKE 1 [facility] m (LEXAPRO) 7-06 TABLET(20 st 20 MG 00:00: MG) BY Hospita tablet 00 MOUTH l DAILY losartan Yes TAKE 1 [facility] (COZAAR) 25 7-06 TABLET(25 st MG tablet 00:00: MG) BY Hospit a 00 MOUTH l TWICE DAILY IPRATROPIUM Yes .5mg Inhale 0.5 Carlos BROMIDE IN 6-30 mg by nose Col lege 09:37: daily. of 13 Medicin e Albuterol Yes Inhale by Nathanael ylor Sulfate 6-30 mouth. [place] (VENTOLIN 09:37: of HFA IN) 13 Medicin e Acetaminoph Yes Take by Nathanael castro en (TYLENOL 6-30 mouth as Yenni ege ARTHRITIS 09:37: needed. of PAIN OR) 13 Medicin e escitalopra Yes 10mg Take 10 mg [facility] m (LEXAPRO) 6-30 by mouth Yenni ege 10 MG 09:37: daily. of tablet 13 Medicin e sodium Yes 4mL Take 1 [facility] chloride, 6-30 Ampule by [employer] Inhalant, 00:00: nebulizati of (HYPER-AKILA) 00 on two Medici n 7 % times e nebulizer daily. solution budesonide Yes 500ug Take 2 mL [facility] (PULMICORT) 6-30 by [place] 0.5 MG/2ML 00:00: nebulizati o f nebulizer 00 on two Medicin suspension times e daily. sodium Yes 4mL Take 1 Carlos chloride, 6-30 Ampule by [employer] Inhalant, 00:00: nebulizati of (HYPER-AKILA) 00 on two Medici n 7 % times e nebulizer daily. solution budesonide Yes 500ug Take 2 mL [facility] (PULMICORT) 6-30 by [place] 0.5 MG/2ML 00:00: nebulizati o f nebulizer 00 on two Medicin suspension times e daily. sodium 2020-0 2021- No 4mL Take 1 Carlos chloride, 6-30 02-17 Ampule by Quigo ege Inhalant, 00:00: 00:00 nebulizati o f (HYPER-AKILA) 00 :00 on two Medici n 7 % times e nebulizer daily. solution budesonide 2020-0 2021- No 500ug Take 2 mL [facility] (PULMICORT) 6-30 02-17 by [place] 0.5 MG/2ML 00:00: 00:00 nebulizati of nebulizer 00 :00 on two Medicin suspension times e daily. predniSONE 2020-0 2021- No 40mg Take 2 [facility] (DELTASONE) 03-03- Tablets by Marisa obregon 20 MG 00:00: 04:59 mouth of tablet 00 :00 daily for Medicin 5 days. e budesonide 2020- No 500ug Take 2 mL [facility] (PULMICORT) 03-03-30 by [place] 0.5 MG/2ML 00:00: 00:00 nebulizati of nebulizer 00 :00 on two Medicin suspension times e daily. escitalopra 2020- No [id number] 20mg QD Take 1 [facility] m (LEXAPRO) 12-29- tablet (20 s t 20 MG 00:00: 00:00 mg total) Hospit a tablet 00 :00 by mouth l daily for 90 days. IPRATROPIUM Yes .5mg Inhale 0.5 [facility] BROMIDE IN 3-05 mg by nose Col lege 10:43: daily. of 27 Medicin e escitalopra Yes 10mg Take 10 mg Carlos m (LEXAPRO) 3-05 by mouth Yenni ege 10 MG 10:43: daily. of tablet 27 Medicin e Albuterol Yes Inhale by [facility] Sulfate 3-05 mouth. [place] (VENTOLIN 10:42: of HFA IN) 18 Medicin e Acetaminoph Yes Take by [facility] en (TYLENOL 3-05 mouth as Yenni ege ARTHRITIS 10:42: needed. of PAIN OR) 18 Medicin e ALBUTEROL 2020- No 3mg Take 3 mg [facility] SULFATE OR 3-05 03-05 by mouth Yenni ege 10:41: 00:00 daily. of 18 :00 Medicin e losartan 2020- No 25mg Q.5D Take 1 Method i (COZAAR) 25 09-10-06 tablet (25 s t MG tablet 00:00: 00:00 mg total) Ho spita 00 :00 by mouth 2 l (two) times a day for 90 days. losartan 2020- No 25mg Take 25 mg [facility] (COZAAR) 25 09-10 04-08 by mouth Col lege MG tablet 00:00: 04:59 two times of 00 :00 daily. Medicin e albuterol 2019-09 Yes 1{ampul Q4H Take 1 Met hodi (ACCUNEB) 2-02 e} ampule by st 1.25 mg/3 23:15: nebulizati Ho spita mL 51 on every 4 l nebulizer (four) solution hours as needed for wheezing. calcium 2019-09 Yes 1{tbl} QD Take 1 Method i carbonate-v 2-[address] itamin D3 23:15: mouth Hospita (CALCIUM 51 daily. l 500 + D) 500 mg(1,250mg) -400 unit tablet IPRATROPIUM 2019-09 Yes .5mg Inhale 0.5 [facility] BROMIDE 2-[address] INHL 23:15: Hospita 51 l escitalopra 2019-09- No [id number] TAKE 1 [facility] m (LEXAPRO) 09-27 TABLET(20 st 20 MG 00:00: 00:00 MG) BY Hospita tablet 00 :00 MOUTH l DAILY candesartan 2020- No [id number] Take / [facility] (ATACAND) 8 11-26 03-05 tab (4 mg) C ollege MG tablet 00:00: 00:00 once a day o f 00 :00 Medicin e Lexapro 2016-09 Yes Ahmed 1 tablet Memor ia 09-17 Ahmed l 04:05: Cameron Baires Losartan 2016-09 Yes Ahmed 1 tablet [facility] Potassium 09-17 Ahmed l 04:05: Cameron Baires Ventolin 2016-09 Yes Ahmed 2 puffs as Me moria HFA 09-17 Ahmed needed l 04:05: Cameron Baires Nebulizer 2016-09 Yes Ahmed 1 tab Memori a 14 Ahmed l 04:05: Cameron Baires Albuterol 2016-09 Yes Ahmed not Memoria 14 Ahmed defined l 04:05: Cameron Baires Immunizations Ordered Immunization Filled Immunization Date Status Commen ts Source Name Name Influenza Hd 2021-05-05 Completed [facility] ge 00:00:00 of Medicine Pfizer SARS-CoV-2 2020-11-03 Completed [facility] Vaccination 00:00:00 of Medicine Pfizer SARS-CoV-2 2020-11-03 Completed [facility] Vaccination 00:00:00 of Medicine Pfizer SARS-CoV-2 2020-11-03 Completed [facility] Vaccination 00:00:00 of Medicine Pfizer SARS-CoV-2 2020-11-03 Completed [facility] College Vaccination 00:00:00 of Medicine PFIZER COVID-19 MRNA 2020-11-03 Completed [facility] VACCINATION 00:00:00 Hospital Pfizer SARS-CoV-2 2020-10-13 Completed [facility] [place] Vaccination 00:00:00 of Medicine Pfizer SARS-CoV-2 2020-10-13 Completed [facility] [place] Vaccination 00:00:00 of Medicine Pfizer SARS-CoV-2 2020-10-13 Completed Carlos [place] Vaccination 00:00:00 of Medicine Pfizer SARS-CoV-2 2020-10-13 Completed [facility] [place] Vaccination 00:00:00 of Medicine PFIZER COVID-19 MRNA 2020-10-13 Completed [facility] VACCINATION 00:00:00 Hospital FLUZONE HIGH-DOSE PF 2019-06-01 Completed [facility] 00:00:00 Hospital Influenza Hd 2019-06-01 Completed [facility] Colle ge 00:00:00 of Medicine Influenza Hd 2019-06-01 Completed [facility] Colle ge 00:00:00 of Medicine Influenza Hd 2019-06-01 Completed [facility] ge 00:00:00 of Medicine Influenza Hd 2018-05-21 Completed [facility] ge 00:00:00 of Medicine Pneumococcal 2018-05-21 Completed [facility] Polysaccharide 00:00:00 of Medicin e Influenza Hd 2018-05-21 Completed [facility] ge 00:00:00 of Medicine Pneumococcal 2018-05-21 Completed [facility] Polysaccharide 00:00:00 of Medicin e Influenza Hd 2018-05-21 Completed [facility] Colle ge 00:00:00 of Medicine Pneumococcal 2018-05-21 Completed [facility]le ge Polysaccharide 00:00:00 of Medicin e Pneumococcal 2018-05-05 Completed [facility] Polysaccharide 00:00:00 Hospital Pneumococcal 2018-05-05 Completed [facility] Colle ge Polysaccharide 00:00:00 of Medicin e Pneumococcal 2018-05-05 Completed [facility] Colle ge Polysaccharide 00:00:00 of Medicin e Pneumococcal 2018-05-05 Completed [facility] Colle ge Polysaccharide 00:00:00 of Medicin e Influenza Trivalent 2015-05-15 Completed [facility] 00:00:00 Hospital Pneumococcal 2015-05-15 Completed [facility] Conjugate 13-Valent 00:00:00 Hospi christine Pneumococcal 2015-05-15 Completed [facility] ge 13-valent Conjugate 00:00:00 of Me dicine Vaccine Influenza Quad-PF 2015-05-15 Completed [facility] 00:00:00 of Medicine Pneumococcal 2015-05-15 Completed [facility] ge 13-valent Conjugate 00:00:00 of Me dicine Vaccine Influenza Quad-PF 2015-05-15 Completed [facility] 00:00:00 of Medicine Pneumococcal 2015-05-15 Completed [facility] ge 13-valent Conjugate 00:00:00 of Me dicine Vaccine Influenza Quad-PF 2015-05-15 Completed [facility] 00:00:00 of Medicine Vital Signs Vital Name Observation Time Observation Value Comments Source Systolic blood 2021-10-21 15:19:00 120 mm[Hg] [facility] Diastolic blood 2021-10-21 15:19:00 98 mm[Hg] [facility] Heart rate 2021-10-21 15:12:00 78 /min [facility] Body height 2021-10-21 15:12:00 152.4 cm [facility] Body weight 2021-10-21 15:12:00 50.349 kg [facility] BMI 2021-10-21 15:12:00 21.68 kg/m2 [facility] Systolic blood 2021-07-16 16:24:00 162 mm[Hg] [facility] Diastolic blood 2021-07-16 16:24:00 82 mm[Hg] [facility] Heart rate 2021-07-16 16:24:00 83 /min [facility] Respiratory rate 2021-07-16 16:24:00 16 /min [facility] Body height 2021-07-16 16:24:00 152.4 cm [facility] Body weight 2021-07-16 16:24:00 48.535 kg [facility] BMI 2021-07-16 16:24:00 20.90 kg/m2 [facility] Oxygen saturation in 2021-07-16 16:24:00 97 /min [facility] Arterial blood by Medicine Pulse oximetry Systolic blood 2021-03-03 14:43:00 113 mm[Hg] [facility] Medicine Diastolic blood 2021-03-03 14:43:00 73 mm[Hg] [facility] Medicine Heart rate 2021-03-03 14:43:00 99 [facility] Body temperature 2021-03-03 14:43:00 37 Luisa [facility] Body height 2021-03-03 14:43:00 [facility] 2021-03-03 14:43:00 48[facility]988 [facility] BMI 2021-03-03 14:43:00 21.09 kg/m2 [facility] Systolic blood 2020-11-06 16:43:00 129 mm[Hg] [facility] Diastolic blood 2020-11-06 16:43:00 85 mm[Hg] [facility] Medicine Heart rate 2020-11-06 16:43:00 86 /min [facility] Body temperature 2020-11-06 16:43:00 37 Luisa [facility] Respiratory rate 2020-11-06 16:43:00 16 /min [facility] Body height 2020-11-06 16:43:00 152.4 cm [facility] Body weight 2020-11-06 16:43:00 48.535 kg [facility] BMI 2020-11-06 16:43:00 20.90 [facility]2 [facility] Body height 2020-11-27 12:16:[address] [facility] Body weight 2020-11-27 12:16:[address] [facility] BMI 2020-11-27 12:16:00 20.90 kg/m2 [facility] Weight 2016-11-21 21:30:00 [facility] Heart Rate 2016-11-21 21:30:00 [facility] Diastolic (mm Hg) 2016-11-21 21:30:00 [facility] Systolic (mm Hg) 2016-11-21 21:30:00 Ward Bravoann Weight 2016-10-19 16:30:00 Kevin Barnes Heart Rate 2016-10-19 16:30:00 Kevin [place] Diastolic (mm Hg) 2016-10-19 16:30:00 Leesa Barnes Systolic (mm Hg) 2016-10-19 16:30:00 Ward Barnes Procedures Procedure Date / Time Performing Clinician Source Performed ELECTROCARDIOGRAM COMPLETE 2021-07-16 16:41:13 Neetu Mantilla [facility] CT CHEST WITH IV CONTRAST 2020-11-27 13:02:00 Hans Borrego [facility] COMPREHENSIVE METABOLIC 2020-11-06 18:48:00 Hans Borrego [facility] MAGNESIUM 2020-11-06 18:48:00 [facility] CBC W/O DIFF W PLT 2020-11-06 18:48:00 Hans Borrego [facility] Co llege [facility] PROTIME-INR 2020-11-06 18:48:00 [facility] APTT 2020-11-06 18:48:00 [facility] Plan of Care Planned Activity Planned Date Details Comments Source Future Scheduled 2021-10-21 ELECTROCARDIOGRAM [facility] Test 09:15:22 COMPLETE [code = 16673] of M edicine Future Scheduled 2021-10-21 TETANUS SHOT (ADULT) [facility] Test 09:14:22 [code = TETANUS SHOT of Medi cine (ADULT)] Future Scheduled 2021-10-21 ZOSTER VACCINE (1 of 2) [facility] Test 09:14:22 [code = ZOSTER VACCINE of Me dicine (1 of 2)] Future Scheduled 2021-10-21 [facility] 09:14:22 [code = MEDICARE AWV of Medi cine (Initial)] Future Scheduled 2021-10-21 FALL SCREEN [code = [facility] Test 09:14:22 FALL SCREEN] of Medicine Future Scheduled 2021-10-21 Screening for Carlos Col [facility]ge Test 09:14:22 osteoporosis of Medicine (procedure) [code = 414702807] Future Scheduled 2021-10-21 COVID-19 Vaccine (3 - [facility] Test 09:14:22 Booster for Pfizer of Medici ne series) [code = COVID-19 Vaccine (3 - Booster for Pfizer series)] Future Scheduled 2021-07-28 SHINGLES VACCINES (#1) [facility] Test 11:48:54 [code = SHINGLES Hospital VACCINES (#1)] Future Scheduled 2021-07-28 INFLUENZA VACCINE [code [facility] Test 11:48:54 = INFLUENZA VACCINE] Hospita l Future Scheduled 2021-07-28 COVID-19 VACCINE (3 - [facility] Test 11:48:54 Booster for Pfizer Hospital series) [code = COVID-19 VACCINE (3 - Booster for Pfizer series)] Future Scheduled 2021-07-16 BASIC METABOLIC PANEL Ordered: [facility] College Test 11:16:07 [code = 04630-4] 07/16/2021 of Medicine Future Scheduled 2021-07-16 THYROID PROFILE (T3U - Ordered: [facility] Test 11:16:07 T4 - T7 - TSH) [code = 07/16/2021 of In dicine NOCPT] Future Scheduled 2021-07-16 HEMOGLOBIN A1C [code = Ordered: B [facility] Test 11:16:07 4548-4] 07/16/2021 of Medicine Future Scheduled 2021-07-16 LIPID PANEL [code = Ordered: [facility] Test 11:16:07 79820-8] 07/16/2021 of Medicine Future Scheduled 2021-07-16 CBC W/AUTO DIFF WITH Ordered: [facility] Test 11:16:07 PLATELETS [code = 07/16/2021 of Medicin e 77777-4] Future Scheduled 2021-07-16 BRAIN NATRIURETIC Ordered: [facility] Test 11:16:07 PEPTIDE [code = 07/16/2021 of Medicine 09158-7] Future Scheduled 2021-07-16 TETANUS SHOT (ADULT) [facility] Test 10:25:06 [code = TETANUS SHOT of Medi cine (ADULT)] Future Scheduled 2021-07-16 ZOSTER VACCINE (1 of 2) [facility] Test 10:25:06 [code = ZOSTER VACCINE of Me dicine (1 of 2)] Future Scheduled 2021-07-16 MEDICARE AWV (Initial) [facility] Test 10:25:06 [code = MEDICARE AWV of Medi cine (Initial)] Future Scheduled 2021-07-16 FALL SCREEN [code = [employer] Test 10:25:06 FALL SCREEN] of Medicine Future Scheduled 2021-07-16 Screening for Carlos Col [facility]ge Test 10:25:06 osteoporosis of Medicine (procedure) [code = 060499053] Future Scheduled 2021-07-16 FLU VACCINE > 6 MONTHS [facility] [employer] Test 10:25:06 [code = FLU VACCINE > 6 of M edicine MONTHS] Future Scheduled 2021-07-16 COVID-19 Vaccine (3 - [facility] Test 10:25:06 Booster for Pfizer of Medici ne series) [code = COVID-19 Vaccine (3 - Booster for Pfizer series)] Diagnostic Test 2021-07-16 MYOCARD PERFUSION - Expected: [employer] [facility] [employer] Pending 00:00:00 EXERCISE [code = 81332] 07/16/2021, of M edicine Expires: 01/13/2023 Future Scheduled 2021-05-05 INFLUENZA VACCINE (#1) [facility] Test 00:00:00 [code = INFLUENZA Medical Ce nter VACCINE (#1)] Future Scheduled 2021-05-05 INFLUENZA VACCINE (#1) [facility] Test 00:00:00 [code = INFLUENZA Medical Ce nter VACCINE (#1)] Future Scheduled 2021-03-04 TETANUS SHOT (ADULT) [place] [facility] [employer] Test 00:21:18 [code = TETANUS SHOT of Medi cine (ADULT)] Future Scheduled 2021-03-04 ZOSTER VACCINE (1 of 2) [facility] College Test 00:21:18 [code = ZOSTER VACCINE of In dicine (1 of 2)] Future Scheduled 2021-03-04 MEDICARE AWV (Initial) [facility] [employer] Test 00:21:18 [code = MEDICARE AWV of Medi cine (Initial)] Future Scheduled 2021-03-04 FALL SCREEN [code = [employer] Test 00:21:18 FALL SCREEN] of Medicine Future Scheduled 2021-03-04 Screening for [facility] Col lege Test 00:21:18 osteoporosis of Medicine (procedure) [code = 674444339] Future Scheduled 2021-03-04 FLU VACCINE > 6 MONTHS [facility] [employer] Test 00:21:18 [code = FLU VACCINE > 6 of M edicine MONTHS] Future Scheduled 2021-02-18 TETANUS SHOT (ADULT) [place] [facility] [employer] Test 09:31:41 [code = TETANUS SHOT of Medi cine (ADULT)] Future Scheduled 2021-02-18 ZOSTER VACCINE (1 of 2) [facility] Test 09:31:41 [code = ZOSTER VACCINE of Me dicine (1 of 2)] Future Scheduled 2021-02-18 MEDICARE AWV (Initial) [facility] [employer] Test 09:31:41 [code = MEDICARE AWV of Medi cine (Initial)] Future Scheduled 2021-02-18 FALL SCREEN [code = [employer] Test 09:31:41 FALL SCREEN] of Medicine Future Scheduled 2021-02-18 Screening for Carlos [facility] Test 09:31:41 osteoporosis of Medicine (procedure) [code = 535109441] Future Scheduled 2021-02-18 FLU VACCINE > 6 MONTHS [facility] [employer] Test 09:31:41 [code = FLU VACCINE > 6 of M edicine MONTHS] Future Scheduled 2020-11-06 CT CHEST W CONTRAST 1 Occurrences [place] [facility] [employer] Test 12:21:30 [code = 65761-4] starting of Medicine 11/06/2020 until 11/06/2021 Future Scheduled 2020-11-06 COMPLETE PFT WITH 1 Occurrences [employer] Test 12:20:24 BRONCHODILATOR [code = starting of Me dicine 91051] 11/06/2020 until 11/06/2021 Future Scheduled 2020-11-06 SIX MINUTE WALK TEST 1 Occurrences [employer] Test 12:20:24 [code = 66868] starting of Medicine 11/06/2020 until 11/06/2021 Future Scheduled 2020-09-[address] [facility] - Test 00:00:00 (12+) [code = [facility] Center DEPRESSION SCREENING (12+)] Future Scheduled 2020-09-[address] [facility] [facility] 00:00:00 [code = FALLS RISK Medical C enter SCREENING] Future Scheduled 2020-09-[address] [facility] Test 00:00:00 (12+) [code = Medical Center DEPRESSION SCREENING (12+)] Future Scheduled 2020-09-04 FALLS [address]IS[facility] SCREENING [facility] 00:00:00 [code = FALLS RISK Medical C enter SCREENING] Future Scheduled 2004-09-[address] [facility] 00:00:00 WELLNESS (YEAR 2 or Medical Center FIRST YEAR if no IPPE) [code = MEDICARE ANNUAL WELLNESS (YEAR 2 or FIRST YEAR if no IPPE)] Future Scheduled 2004-09-[address] [facility] 00:00:00 WELLNESS (YEAR 2 or Medical Center FIRST YEAR if no IPPE) [code = MEDICARE ANNUAL WELLNESS (YEAR 2 or FIRST YEAR if no IPPE)] Future Scheduled 1988 SHINGLES VACCINES ([address] [facility] Test 00:00:00 2) [code = SHINGLES Medical Center VACCINES (1 of 2)] Future Scheduled 1988 SHINGLES VACCINES ([address] [facility] 00:00:00 2) [code = SHINGLES Medical Center VACCINES (1 of 2)] Future Scheduled 1957 DTAP/TDAP/TD [facility]ACCINES [facility] 00:00:00 (1 - Tdap) [code = Medical C enter DTAP/TDAP/TD VACCINES (1 - Tdap)] Future Scheduled 1957 DTAP/TDAP/TD [facility]ACCINES [facility] 00:00:00 (1 - Tdap) [code = Medical C enter DTAP/TDAP/TD VACCINES (1 - Tdap)] Future Scheduled 1950 COVID-19 VACCINE (1) [facility] 00:00:00 [code = COVID-[address] VACCINE (1)] Future Scheduled 1950 COVID-19 VACCINE (1) [facility] 00:00:00 [code = COVID-[address] VACCINE (1)] Encounters Start End Encounter Admission Attending Care Care Encounter Source Date/Time Date/Time Type Type Clinicians Facility Department ID 2021-11-02 2021-11-02 Outpatient Aquino_B VFP VFP [id number] [facility] 03:47:00 03:47:00 Family Practic e 2021-10-21 2021-10-21 Office SANGEETHA JULES 1.2.840.114 [id number] [facility] 08:55:58 10:55:23 Visit NANNETTE AMBULATOR 350.1.13.21 College Y 0.2.7.2.686 of [id number] Medi colten 300 e 2021-07-16 2021-07-16 Office SANGEETHA MANTILLA 1.2.000.881 [id number] [facility] 10:18:14 15:58:38 Visit NEETU AMBULATOR 350.1.13.21 College Y 0.2.7.2.686 of [id number] Medi colten 375 e 2021-03-10 2021-03-10 Travel 1.2.840.1 1.2.429.671 [id number] [facility] 00:00:00 00:00:[address] 3.430.2.7 0.2.7.3.698 Ho spita .3.066602 084.8 l .8 2021-03-09 2021-03-09 Refill Sonny, 1.2.840.1 [id number] [facility] 00:00:00 00:00:[address] 3.430.2.7 Hospit a .3.641596 l .8 2021-03-06 2021-03-06 Refill Sonny, 1.2.840.1 [id number] [facility] 00:00:00 00:00:[address] 3.430.2.7 Hospit a .3.514343 l .8 2021-03-03 2021-03-03 Office Salima SANGEETHA 1.2.840.114 [id number] [facility] 09:33:36 10:25:12 Visit Hans AMBULATOR 350.1.13.21 College Faisal Y 0.2.7.2.686 of [id number] [facility] colten 315 e 2021-02-25 2021-02-25 Outpatient SANGEETHA IZAGUIRRE [facility] [id number] [facility] 16:36:36 16:41:24 RUPALI Jones e of Medicin e 2021-02-25 2021-02-25 Outpatient SANGEETHA IZAGUIRRE [facility] [id number] [facility] 12:40:26 16:35:24 RUPALI champion of Medicin e 2021-01-22 2021-01-22 Outpatient Aquino_B VFP VFP [id number] - [facility] 09:41:00 09:41:00 [id number] Family Practic e 2020-12-29 2020-12-29 Telephone Krishnamurthy, 1.2.840.1 [id number] [facility] 00:00:00 00:00:[address] 3.430.2.7 Hospit a .3.194486 l .8 2020-12-29 2020-12-29 Orders Krishnamurthy, 1.2.840.1 [id number] [facility]i 00:00:00 00:00:00 Only Cordelia 84762.1.[address] 3.430.2.7 Hospit a .3.409207 l .8 2020-12-22 2020-12-22 Outpatient Aquino_B VFP VFP [id number] - [facility] 05:35:00 05:35:00 41607 Family Practic e 2020-11-27 2020-11-27 Hospital Salima, Hans Malone [facility] [id number] 11:13:31 23:59:00 Encounter 1, [facility] 2020-11-27 2020-11-27 Outpatient SALIMA, [facility] [id number] [facility] 00:00:00 00:00:00 YONCALLA 2020-11-24 2020-11-24 Outpatient Aquino_B VFP VFP [id number] [facility] 12:55:00 12:55:00 [id number] Family Practic e 2020-11-12 2020-11-12 [facility], [facility] [id number] 00:00:00 00:00:[address] [facility] 2020-11-06 2020-11-06 Office Salima SANGEETHA 1.2.840.[id number] [place] [address] 10:25:11 12:35:03 Visit Hans AMBULATOR 350.1.13.21 [place] Faisal Y 0.2.7.2.686 [id number] Medi colten 315 e 2020-11-03 2020-11-03 Clinical Abilio, 1.2.840.1 [id number] [facility]i 13:34:29 15:03:06 Support Manueler 87678.1.[address] P. 3.430.2.7 Hospit a .3.291469 l .8 2020-11-03 2020-11-03 Travel 1.2.840.1 1.2.765.022 [id number] [facility]i 00:00:00 00:00:[address] 3.430.2.7 0.2.7.3.698 Ho spita .3.867814 084.8 l .8 2020-10-13 2020-10-13 Clinical 1.2.840.1 [id number] [facility] 13:21:26 13:33:[address] 3.430.2.7 Hospit a .3.886417 l .8 2020-10-13 2020-10-13 Travel 1.2.840.1 1.2.182.030 2425 [id number] [facility]i 00:00:00 00:00:[address] 3.430.2.7 0.2.7.3.698 Ho spita .3.849196 084.8 l .8 2019-09-27 2019-09-27 Outpatient Aquino_B VFP [facility] [id number] [facility] 10:43:00 10:43:00 [id number] Family Practic e 2016-02-10 2016-02-10 Outpatient MHIE MHIE [id number] 10:00:00 10:00:00 04 torsten Barnes 2015-12-22 2015-12-22 Outpatient MHIE MHIE [id number] 08:30:00 08:30:00 03 torsten Barnes 2015-12-16 2015-12-16 Outpatient MHIE MHIE [id number] 08:30:00 08:30:00 02 torsten Barnes Results Test Description Test Time Test Comments Results Result [facility] e Comments CT, CHEST, WITH IV 2020-11-27 Unlisted CONTRAST 14:28:00 Reason for Exam - Click [facility] Yes and Enter [facility] - MEDICAL Reason CENTERName: Rylan HIGH->Fish cobian Reason : 1940 for Sex: Exam->ATELECTA F SIS FI NAL REPORT CT of the chest, with contrast Clinical History: Unlisted Reason for ExamATELECTASIS Technique: CT of the chest is performed with intravenous contrast administration. This exam was performed according to our departmental dose optimization program which includes automated exposure control, adjustment of the mA and/or kV according to patient's size and/or use of iterative reconstructive technique. Comparison Film: None Discussion: Visualized thyroid gland is normal. No supraclavicular, axillary, mediastinal or hilar lymphadenopathy. Heart is normal in size. There is a small pericardial effusion. There is mild atelectasis in the left lower lobe. Mild to moderate bronchial wall thickening and bronchiectasis is noted in the right upper lobe. There is also minimal bronchial wall thickening in the lower lobes. No discrete mass or consolidation. A 2 mm nodule in the right middle lobe, and a 4 mm nodule in right lower lobe are nonspecific. No effusion. Partially imaged upper abdomen is unremarkable. Bony structures demonstrate degenerative changes. Impression: Mild to moderate bronchial wall thickening and bronchiectasis in the right upper lobe, as well as minimal bronchial wall thickening in both lower lobes. Small pericardial effusion. Signed: Karol Hollins Verified Date/Time: 11/27/2020 14:28:43 Reading Location: [address] Consult Reading Room ESIUM 2020-11-07 10:10:04 Test Item Value Reference Range Interpretation Comme nts MAGNESIUM (test code = 39838-2) See_Comment Unless Otherwise Indicated, All Testing Per formed At: [facility], [address] [place] [address] Laboratory Dire ctor: Andrey Weber M.D. CLI A Number [id number] Cap Accreditati on No. [Automated mess age] The system which generated this result transmitted reference range : 1.6 - 2.6 MG/DL. The reference range was not used to interpret this result as normal/abnormal . [id number] 09:55:37 Test Item Value Reference Range Interpretation Comments PROTIME (test code = See_Comment [Autom ated message] The 3289-6) system which ge nerated this result transmit yousif reference range: 12.5 - 1 4.7 SECONDS. The reference r kavin was not used to interpr et this result as liz l/abnormal. INR (test code = SEE BELOW CURRENT 6301-6) RECOMMENDATIONS ARE FOR AN INR OF 2.0-3.0 FOR ALL PATIENT S ON VITAMIN K ANTAGONISTS, EXCEPT THOSE WITH PROSTHETIC HEART VALVES, F OR WHOM INR OF 2.5-3.5 IS RECOMMENDED. Unless Otherwise Indic ated, All Testing Perform ed At: [facility], [address] [place], [place] [address] Laboratory Dire ctor: Andrey Weber M.D. CLIA Number [id number] Cap Accreditation N o. [facility] CenterAPTT2021-03-06 09:55:37 Test Item Value Reference Range Interpretation Comments PARTIAL THROMBOPLASTIN See_Comment Unless TIME (test code = Otherwise Indicated, 46141-4) All Testing Per formed At: [facility], [address] [place] [address] Laboratory Dire ctor: Andrey gallegos M.D. CLIA Numb er [id number] Cap Accreditation N o. [id number] [Auto mated message] The sy stem which generated this result transmit yousif reference range : 25.2 - 40.0 SECONDS. T he reference range was not used to interpr et this result as normal/abnormal . [facility] Center[facility]PRE[facility] METABOLIC [id number] 09:42:33 Test Item Value Reference Range Interpretation Comments GLUCOSE (test code = See_Comment [Autom ated message] 2345-7) The system [employer] generated this result transmitted ref erence range: 70 - 99 MG/DL. The reference r kavin was not used to interpret this result as normal/abnor mal. BLOOD UREA NITROGEN See_Comment H [Automa yousif message] (test code = 3091-6) The sys tem which generated this result transmitted ref erence range: 8 - 23 M G/DL. The reference r kavin was not used to interpret this result as normal/abnor mal. CREATININE (test code = See_Comment [Au tomated message] 2160-0) The system [employer] generated this result transmitted ref erence range: 0.60 - 1 .30 MG/DL. The refe rence range was not u sed to interpret this result as normal/abnor mal. EGFR AA (test code = See_Comment L [Autom ated message] 75458-9) The system [employer] generated this result transmitted ref erence range: >60 ML/MIN/1.73. Th e reference range was not used to int erpret this result as normal/abnormal . EGFR (test code = See_Comment L [Automate d message] 46654-8) The system [employer] generated this result transmitted ref erence range: >60 ML/MIN/1.73. Th e reference range was not used to int erpret this result as normal/abnormal . BUN/CREAT RATIO (test See_Comment [Auto mated message] code = 3097-3) The system [facility] generated this result transmitted ref erence range: 6 - 28 R ATIO. The reference r kavin was not used to interpret this result as normal/abnor mal. SODIUM (test code = See_Comment [Automa yousif message] 2951-2) The system [employer] generated this result transmitted ref erence range: 133 - 14 6 MEQ/L. The refe rence range was not u sed to interpret this result as normal/abnor mal. POTASSIUM (test code = See_Comment H [Aut omated message] 5273-3) The system [employer] generated this result transmitted ref erence range: 3.5 - 5. 4 MEQ/L. The refe rence range was not u sed to interpret this result as normal/abnor mal. CHLORIDE (test code = See_Comment [Auto mated message] 2074-0) The system [facility] generated this result transmitted ref erence range: 95 - 107 MEQ/L. The reference r kavin was not used to interpret this result as normal/abnor mal. CO2 (test code = See_Comment [Automated message] 8) The system [facility] generated this result transmitted ref erence range: 19 - 31 MEQ/L. The reference r kavin was not used to interpret this result as normal/abnor mal. CALCIUM (test code = See_Comment [Autom ated message] 32229-2) The system [facility] generated this result transmitted ref erence range: 8.5 - 10 .5 MG/DL. The refe rence range was not u sed to interpret this result as normal/abnor mal. PROTEIN TOTAL (test See_Comment [Automa yousif message] code = 2885-2) The system [facility] generated this result transmitted ref erence range: 6.1 - 8. 3 G/DL. The reference r kavin was not used to interpret this result as normal/abnor mal. ALBUMIN (test code = See_Comment [Autom ated message] 02200-2) The system [facility] generated this result transmitted ref erence range: 3.5 - 5. 2 G/DL. The reference r kavin was not used to interpret this result as normal/abnor mal. GLOBULINS, SERUM, TOTAL See_Comment [Au tomated message] (test code = 08759-6) The sy stem which generated this result transmitted ref erence range: 1.9 - 3. 7 G/DL. The reference r kavin was not used to interpret this result as normal/abnor mal. A/G RATIO (test code = See_Comment [Aut omated message] 7329-0) The system [facility] generated this result transmitted ref erence range: 1.0 - 2. 6 RATIO. The refe rence range was not u sed to interpret this result as normal/abnor mal. BILIRUBIN TOTAL (test <0.2 See_Comment [Auto mated message] code = 1975-2) The system wh ich generated this result transmitted ref erence range: <=1.2 MG /DL. The reference r kavin was not used to interpret this result as normal/abnor mal. ALKALINE PHOSPHATASE 87 U/L 40-142 (test code = 6768-6) AST (SGOT) (test code = 22 U/L 9-40 1920-8) ALT (SGPT) (test code = 18 U/L 5-40 Unless 1744-2) Otherwise Indic ated, All Testing Per formed At: [facility], [address] [place] [address] Laboratory Dire ctor: Andrey gallegos M.D. CLIA Num mayra [id number] Cap Accreditation N o. [id number] Lab Interpretation Abnormal (test code = 32483-9) [facility] W/O DIFF W [id number] 08:42:12 Test Item Value Reference Range Interpretation Comments WHITE BLOOD CELL COUNT See_Comment [Aut omated message] The (test code = 33869-7) system which generated this result tra nsmitted reference range : 3.5 - 11.0 K/UL. The reference range was not u sed to interpret this result as normal/abnormal . RED BLOOD CELL COUNT See_Comment [Autom ated message] The (test code = 11811-0) system which generated this result tra nsmitted reference range : 3.80 - 5.40 M/UL. The reference range was not u sed to interpret this result as normal/abnormal . HEMOGLOBIN (test code See_Comment [Auto mated message] The = 718-7) system which ge nerated this result tra nsmitted reference range : 11.5 - 15.5 G/DL. The reference range was not u sed to interpret this result as normal/abnormal . HEMATOCRIT (test code 41.6 % 34.0-45.0 = 56019-3) MEAN CORPUSCULAR 88.3 fL 80.0-99.0 VOLUME (test code = 05950-4) MEAN CORPUSCULAR 29.3 PG 25.0-33.0 HEMOGLOBIN (test code = 67552-4) MEAN CORPUSCULAR See_Comment [Automated message] The HEMOGLOBIN CONC (test system which generated code = 12777-0) this result transmitted reference range : 31 - 36 G/DL. The refer ence range was not u sed to interpret this result as normal/abnormal . PLATELET COUNT (test See_Comment Unless code = 80217-9) Otherwise In dicated, All Testing Perform ed At: [facility], [address] [place] [address] Dressage Instructor: Polo AlanizRADHA Wendy santos [id number] Cap Accreditation N o. [id number] [Auto mated message] The sy stem which generated this result transmit yousif reference range : 130 - 400 K/UL. The r eference range was not u sed to interpret this result as normal/abnormal . [facility]
[2021-11-25 10:25] LABS: Absolute Lymphocytes (CBC) 1.1 K/uL (0.7-4.9); Hematocrit 41.6 % (36.0-45.0); Lymphocytes % 18.5 % (15.3-44.8); MPV 9.5 fL (7.6-11.3); RBC Red Blood Cell Count 4.69 M/uL (3.86-4.86)
[2021-11-25 10:50] LABS: Albumin 3.8 g/dL (3.4-5.0); Bilirubin Total 0.5 mg/dL (0.2-1.0); Potassium 4.3 mmol/L (3.5-5.1)
[2021-11-25] MEDS ORDERED: FUROSEMIDE 40 MG/4 ML VIAL ONE (12:03)
--- NOTE | 2021-11-25 12:27 | RAD REPORT ---
EXAM DESCRIPTION: RAD - Chest Single View - 11/25/2021 12:03 pm CLINICAL HISTORY: Cough;Chest pain COMPARISON: Portable 12/03/2018 TECHNIQUE: AP portable chest image was obtained 11/25/2021 12:03 pm . FINDINGS: Scattered fibrotic lung change present in a pattern similar comparison. Scattered granulom as are seen. No failure, volume overload or acute lung parenchymal process seen. Heart and vasculature are normal. No measurable pleural effusion and no pneumothorax. No acute bony abnormality seen. No acute aortic findings suspected. IMPRESSION: No acute cardiopulmonary process. No significant change from comparison study.
--- NOTE | 2021-11-25 12:52 | ER ---
Nurse's Notes [facility] Name: Sahra High Age: 81 yrs Sex: Female : 1940 Arrival Date: 11/25/2021 Time: 09:29 Bed 26 Private MD: Diagnosis: Chest pain, unspecified;Chest pain on breathing Presentation: 11/25 09:45 Chief complaint: Patient states: LUQ abd pain with nausea started last night. No fever. ll1 Coronavirus screen: Vaccine status: Patient reports receiving the 2nd dose of the covid vaccine. Client denies travel out of the [place] in the last 14 days. At this time, the client does not indicate any symptoms associated with coronavirus-19. Ebola Screen: Patient denies travel to an Ebola-affected area in the 21 days before illness onset. Initial Sepsis Screen: Does the patient meet any 2 criteria? No. Patient's initial sepsis screen is negative. Does the patient have a suspected source of infection? Yes: Acute abdominal pain. Risk Assessment: Do you want to hurt yourself or someone else? Patient reports no desire to harm self or others. Onset of symptoms was November 24, 2021. 09:45 Method Of Arrival: Wheelchair ll1 09:45 Acuity: LA NENA 3 ll1 Historical: - Allergies: 09:47 No Known Drug Allergies; ll1 - Home Meds: 13:30 escitalopram oxalate 10 mg Oral tab 1 tab once daily [Active]; losartan 25 mg Oral tab lr4 1 tab 2 times per day [Active]; - PMHx: 09:47 Depression; Hypertension; Asthma; ll1 - PSHx: 09:47 hysterectomy; ll1 - Immunization history:: Client reports receiving the 2nd dose of the Covid vaccine. - Social history:: Smoking status: Patient denies any tobacco usage or history of. Screenin:04 Abuse screen: Denies threats or abuse. Denies injuries from another. Nutritional cb5 screening: No deficits noted. Tuberculosis screening: No symptoms or risk factors identified. 13:30 Fall Risk None identified. lr4 Assessment: 10:03 General: Appears uncomfortable, Behavior is calm, cooperative, appropriate for age. cb5 Pain: Complains of pain in epigastric paih Pain currently is 4 out of 10 on a pain scale. Neuro: No deficits noted. Level of Consciousness is awake, alert, obeys commands, Oriented to person, place, time, situation, Appropriate for age. Cardiovascular: No deficits noted. Respiratory: No deficits noted. GI: Bowel sounds present X 4 quads. Abd is soft X 4 quads. : No deficits noted. EENT: No deficits noted. Derm: No deficits noted. Musculoskeletal: No deficits noted. 13:30 Reassessment: Patient is alert, oriented x 3, equal unlabored respirations, skin lr4 warm/dry/pink. Patient states feeling better. Patient states symptoms have improved. Vital Signs: 09:45 BP 129 / 57; Pulse 86; Resp 18; Temp 97.7; Pulse Ox 98% ; Weight 50.35 kg; Height 5 ft. ll1 0 in. (152.40 cm); Pain 7/10; 13:29 BP 110 / 87; Pulse 85; Resp 17; Pulse Ox 98% on R/A; lr4 09:45 Body Mass Index 21.68 (50.35 kg, 152.40 cm) ll1 ED Course: 09:29 Patient arrived in ED. as 09:30 Dean Doss MD is Attending Physician. kdr 09:47 Triage completed. ll1 09:47 Arm band placed on. ll1 09:54 Patient placed in an exam room, on a stretcher. ll1 10:03 Roselia Louise, RN is Primary Nurse. cb5 10:04 Bed in low position. Call light in reach. Side rails up X 1. cb5 10:04 No provider procedures requiring assistance completed. cb5 10:19 CBC with Diff Sent. cb5 10:19 CMP Sent. cb5 10:19 Lipase Sent. cb5 12:05 CXR XRAY In Process Unspecified. EDMS 13:01 EKG done, by ED staff. lr4 13:30 IV discontinued, intact, bleeding controlled, No redness/swelling at site. Pressure lr4 dressing applied. Administered Medications: 13:29 Drug: traMADol 50 mg Route: PO; lr4 13:29 Follow up: Response: No adverse reaction lr4 Outcome: 12:52 Discharge ordered by . kdr 13:30 Discharged to lr4 13:30 Discharged to home ambulatory. 13:30 Condition: good 13:30 Discharge instructions given to patient, family. 13:30 Patient left the ED. lr4 Signatures: Dispatcher [employer] EDMS Dean Doss MD MD kdr Martinez, Amelia as Lewis, Lynsay RN RN ll1 Roselia Louise RN RN cb5 Jacklyn Heath RN RN lr4
--- NOTE | 2021-11-25 12:52 | EDPHYS ---
Physician Documentation [facility] Name: Sahra High Age: 81 yrs Sex: Female : 1940 Arrival Date: 11/25/2021 Time: 09:29 Bed 26 Private MD: ED Physician Dean Doss HPI: 11/25 15:13 This 81 yrs old Female presents to ER via Wheelchair with complaints of Epigastric Pain.kdr 15:13 The patient or guardian reports chest pain that is located primarily in the anterior kdr chest wall, infracostal margin on left side. Pain only bothers her when she coughs. She is nontoxic-appearing and nonacute in the ED. Onset: yesterday. The pain does not radiate. Associated signs and symptoms: Pertinent positives: Pertinent negatives: abdominal pain, cough, diaphoresis, dizziness, headache, lower extremity pain, lower extremity swelling, lightheadedness, nausea, near syncope, palpitations, recent travel, shortness of breath, syncope. The chest pain is described as sharp. Duration: The patient or guardian reports multiple episodes, that are intermittent, that wax and wane, When coughing. Modifying factors: The symptoms are alleviated by remaining still, the symptoms are aggravated by breathing, cough, deep breath. Severity of pain: At its worst the pain was mild moderate just prior to arrival, in the emergency department the pain is unchanged. The patient has not experienced similar symptoms in the past. The patient has not recently seen a physician. Historical: - Allergies: 09:47 No Known Drug Allergies; ll1 - Home Meds: 13:30 escitalopram oxalate 10 mg Oral tab 1 tab once daily [Active]; losartan 25 mg Oral tab lr4 1 tab 2 times per day [Active]; - PMHx: 09:47 Depression; Hypertension; Asthma; ll1 - PSHx: 09:47 hysterectomy; ll1 - Immunization history:: Client reports receiving the 2nd dose of the Covid vaccine. - Social history:: Smoking status: Patient denies any tobacco usage or history of. ROS: 15:13 Constitutional: Negative for fever, chills, and weight loss, Eyes: Negative for injury, kdr pain, redness, and discharge, Neck: Negative for injury, pain, and swelling, Cardiovascular: Negative for chest pain, palpitations, and edema, Abdomen/GI: Negative for abdominal pain, nausea, vomiting, diarrhea, and constipation, Back: Negative for injury and pain, : Negative for injury, bleeding, discharge, and swelling, MS/Extremity: Negative for injury and deformity, Skin: Negative for injury, rash, and discoloration, Neuro: Negative for headache, weakness, numbness, tingling, and seizure activity. Psych: Negative for depression, anxiety, suicide ideation, homicidal ideation, and hallucinations, Allergy/Immunology: Negative for hives, rash, and allergies, Endocrine: Negative for neck swelling, polydipsia, polyuria, polyphagia, and marked weight changes, Hematologic/Lymphatic: Negative for swollen nodes, abnormal bleeding, and unusual bruising. 15:13 Respiratory: Positive for cough, Negative for dyspnea on exertion, hemoptysis, orthopnea, pleurisy, shortness of breath, sputum production, wheezing. Exam: 13:07 ECG was reviewed by the Attending Physician. kdr 15:13 Constitutional: This is a well developed, well nourished patient who is awake, alert, kdr and in no acute distress. Head/Face: Normocephalic, atraumatic. Eyes: Pupils equal round and reactive to light, extra-ocular motions intact. Lids and lashes normal. Conjunctiva and sclera are non-icteric and not injected. Cornea within normal limits. Periorbital areas with no swelling, redness, or edema. Neck: Trachea midline, no thyromegaly or masses palpated, and no cervical lymphadenopathy. Supple, full range of motion without nuchal rigidity, or vertebral point tenderness. No Meningismus. Cardiovascular: Regular rate and rhythm with a normal S1 and S2. No gallops, murmurs, or rubs. Normal PMI, no JVD. No pulse deficits. Respiratory: Lungs have equal breath sounds bilaterally, clear to auscultation and percussion. No rales, rhonchi or wheezes noted. No increased work of breathing, no retractions or nasal flaring. Abdomen/GI: Soft, non-tender, with normal bowel sounds. No distension or tympany. No guarding or rebound. No evidence of tenderness throughout. Skin: Warm, dry with normal turgor. Normal color with no rashes, no lesions, and no evidence of cellulitis. MS/ Extremity: Pulses equal, no cyanosis. Neurovascular intact. Full, normal range of motion. Neuro: Awake and alert, GCS 15, oriented to person, place, time, and situation. Cranial nerves II-XII grossly intact. Motor strength 5/5 in all extremities. Sensory grossly intact. Cerebellar exam normal. Normal gait. Psych: Awake, alert, with orientation to person, place and time. Behavior, mood, and affect are within normal limits. 15:13 Chest/axilla: Inspection: normal, Palpation: tenderness, that is mild, of the left breast. Vital Signs: 09:45 BP 129 / 57; Pulse 86; Resp 18; Temp 97.7; Pulse Ox 98% ; Weight 50.35 kg; Height 5 ft. ll1 0 in. (152.40 cm); Pain 7/10; 13:29 BP 110 / 87; Pulse 85; Resp 17; Pulse Ox 98% on R/A; lr4 09:45 Body Mass Index 21.68 (50.35 kg, 152.40 cm) ll1 MDM: 12:52 Patient medically screened. kdr 15:13 Data reviewed: vital signs, nurses notes, lab test result(s), radiologic studies. kdr Counseling: I had a detailed discussion with the patient and/or guardian regarding: the historical points, exam findings, and any diagnostic results supporting the discharge/admit diagnosis, lab results, radiology results. 11/25 09:48 Order name: CBC with Diff; Complete Time: 11:31 kdr 11/25 09:48 Order name: CMP; Complete Time: 11: [facility] 11/25 09:48 Order name: Lipase; Complete Time: 11:31 [facility] 11/25 11:31 Order name: CXR XRAY; Complete Time: 12:50 kdr 11/25 11:31 Order name: Troponin High Sensitivity; Complete Time: 12:11 [facility] 11/25 09:48 Order name: IV Saline Lock; Complete Time: 10:19 [facility] 11/25 09:48 Order name: Labs collected and sent; Complete Time: 10:19 [facility] 11/25 11:31 Order name: EKG - Nurse/Tech; Complete Time: 13:07 kdr EC: Rate is 80 beats/min. Rhythm is regular, Normal Sinus Rhythm with No ectopy. QRS Steele kdr is Normal. VT interval is normal. QRS interval is normal. QT interval is normal. Clinical impression: Normal ECG. Administered Medications: 13:29 Drug: traMADol 50 mg Route: PO; lr4 13:29 Follow up: Response: No adverse reaction lr4 Disposition Summary: 11/25/21 12:52 Discharge Ordered Location: Home kdr Problem: new kdr Symptoms: have improved kdr Condition: Stable kdr Diagnosis - Chest pain, unspecified kdr - Chest pain on breathing kdr Followup: kdr - With: Private Physician - When: 2 - 3 days - Reason: If symptoms return, Further diagnostic work-up, Recheck today's complaints, Continuance of care, Re-evaluation by your physician Discharge Instructions: - Discharge Summary Sheet kdr - Chest Wall Pain, [id number] kdr - Nonspecific Chest Pain, Adult, [id number] kdr Forms: - Medication Reconciliation Form kdr - Thank You Letter kdr - Prescription Opioid Use kdr Prescriptions: - Tramadol 50 mg Oral Tablet - take 1 tablet by ORAL route every 8 hours as needed; 12 tablet; Refills: 0, kdr Product Selection Permitted - Robitussin Cough-Chest Misael DM - take 1 Teaspoon by ORAL route 3-4 times daily As needed; 200 Teaspoon; Refills: kdr 0, Product Selection Permitted Signatures: Dispatcher [employer] Dean Cantrell MD MD kdr Paola Arzola RN RN ll1 Jacklyn Heath RN RN lr4
[2021-11-25] MEDS ORDERED: TRAMADOL HCL 50 MG TAB ONE (13:23)
== END 2021-11-25 13:30 | disposition home or self-care (01) ==
LOC: ER 09:28
DX: R07.1 Chest pain on breathing (principal); R05.9 Cough, unspecified; I10 Essential (primary) hypertension; F32.A Depression, unspecified
CPT/HCPCS: 36415; 71045; 80053; 83690; 84484; 85025; 93005; 99284; J1940

== ENCOUNTER 2024-08-01 10:02 | Emergency (ER) | payer OTHER ==
[2024-08-01] MEDS ORDERED: IPRATROPIUM BROM 0.5MG/2.5ML ONE (10:38)
[2024-08-01] MEDS ORDERED: METHYLPREDNISOLONE 125 MG INJ ONE (10:38)
[2024-08-01] MEDS ORDERED: LEVALBUTEROL 1.25 MG/3 ML NEB ONE (10:39)
--- NOTE | 2024-08-01 10:43 | RAD REPORT ---
EXAM: Chest Single View HISTORY: COPD;Cough COMPARISON: 11/25/2021 FINDINGS: LUNGS/PLEURA: The lungs are clear. No pleural effusions or pneumothorax. No pulmonary edema. MEDIASTINUM: The mediastinal silhouette is within normal limits. CARDIAC: The cardiac silhouette is within normal limits. UPPER ABDOMEN: No significant abnormality. BONES: No acute fracture. LINES/TUBES/OTHER: N/A IMPRESSION: No evidence of acute cardiopulmonary disease.
[2024-08-01 11:03] LABS: Absolute Basophils 0.1 K/uL (0-0.5); Absolute Eosinophils 0.3 K/uL (0-0.5); Absolute Lymphocytes (CBC) 1.1 K/uL (0.7-4.9); Absolute Monocytes 0.4 K/uL (0.1-1.3); Absolute Neutrophil 3.2 K/uL (1.8-8.0); Basophils % 2.7 % (0-1.3); Eosinophils % 6.7 % (0-4.4); Hematocrit 39.8 % (36.0-45.0); MCHC 32.7 g/dL (32.0-36.0); MCV 91.5 fL (80-100); MPV 8.6 fL (7.6-11.3); Monocytes % 7.8 % (3.3-12.3); Neutrophils % 61.8 % (41.7-73.7); Platelets 283 thou/uL (152-406); RBC Red Blood Cell Count 4.35 M/uL (3.86-4.86); Red Cell Distribution Width 14.2 % (12.1-15.2)
[2024-08-01 11:13] LABS: PT Prothrombin Time 12.6 SECONDS (9.4-12.5); PTT, Activated Partial Thromb 32.8 SECONDS (24.3-36.9); Protime INR 1.13
[2024-08-01 11:21] LABS: Albumin 3.5 g/dL (3.4-5.0); Albumin/Globulin Ratio 1.1 (1.1-1.8); Anion Gap 7.1 mEq/L (5.0-15.0); Bilirubin Total 0.5 mg/dL (0.2-1.0); Globulin 3.2 g/dL (2.3-3.5); Potassium 4.1 mEq/L (3.5-5.1); Protein, Total 6.7 g/dL (6.4-8.2)
--- NOTE | 2024-08-01 12:26 | EDPHYS ---
Physician Documentation [facility] Name: Sahra High Age: 83 yrs Sex: Female : 1940 Arrival Date: 08/01/2024 Time: 10:02 Bed 15 Private MD: ED Physician Alton Raymundo HPI: 08/01 10:29 This 83 yrs old Female presents to ER via Ambulatory with complaints of Breathing rn Difficulty. 10:29 The patient has shortness of breath at rest, with light activity. rn 10:30 Onset: The symptoms/episode began/occurred 5 day(s) ago. Duration: The symptoms are rn continuous. The patient's shortness of breath is aggravated by coughing, light activity, is alleviated by nothing. Severity of symptoms: At their worst the symptoms were moderate in the emergency department the symptoms are unchanged. The patient has experienced similar episodes in the past. 10:30 Patient reports shortness of breath over the last few days, similar symptoms in past rn and feels like it is her COPD. Denies any fever or chills. Denies recent illness. Reports nonproductive cough.. Historical: - Allergies: 10:18 No Known Drug Allergies; ll1 - PMHx: 10:18 Asthma; Depression; Hypertension; ll1 - PSHx: 10:18 hysterectomy; ll1 - Immunization history:: Adult Immunizations up to date. - Infectious Disease History:: Denies. - Social history:: Smoking status: Patient denies any tobacco usage or history of. - Family history:: not pertinent. - Hospitalizations: : No recent hospitalization is reported. ROS: 10:30 Constitutional: Negative for fever, chills, and weight loss, Cardiovascular: Negative rn for chest pain, palpitations, and edema, Respiratory: Positive for cough and shortness of breath Abdomen/GI: Negative for abdominal pain, nausea, vomiting, diarrhea, and constipation, MS/Extremity: Negative for injury and deformity, Neuro: Positive for generalized weakness Exam: 10:30 Constitutional: This is a well developed, well nourished patient who is awake, alert, rn moderate tachypnea Cardiovascular: Tachycardic, regular no pulse deficits. Respiratory: Mild to moderate tachypnea, diminished breath sounds right lung Abdomen/GI: Soft, non-tender MS/ Extremity: Pulses equal, no cyanosis. Neurovascular intact. Full, normal range of motion. Equal circumference. Neuro: Awake and alert, GCS 15 11:08 ECG was reviewed by the Attending Physician. rn Vital Signs: 10:18 BP 173 / 116; Pulse 101; Resp 24; Temp 97.5; Pulse Ox 97% on R/A; Weight 44 kg (R); ll1 Height 5 ft. 0 in. ; Pain 0/10; 10:45 BP 160 / 93; Pulse 82; Resp 20; Pulse Ox 100% on Nebulizer Mask; cm10 11:00 BP 137 / 97; Pulse 104; Resp 21; Pulse Ox 98% on R/A; cm10 12:00 BP 132 / 72; Pulse 86; Resp 17; Pulse Ox 93% on R/A; cm10 10:18 Body Mass Index 18.94 (44.00 kg, 152.4 cm) ll1 10:18 Pain Scale: Adult ll1 MDM: 10:14 Medical Screening Exam initiated rn 11:12 Differential diagnosis: Chronic Obstructive Pulmonary Disease pneumonia, Pneumothorax rn pulmonary edema. Data reviewed: vital signs, lab test result(s), EKG, radiologic studies. Independent interpretation of the following test(s) in the Emergency Department X-Ray: My interpretation is Chest x-ray images show signs of COPD but negative for pneumothorax or pneumonia per my interpretation. 12:24 Counseling: I had a detailed discussion with the patient and/or guardian regarding the rn historical points, exam findings, and any diagnostic results supporting the discharge/admit diagnosis, lab results, radiology results, the need for outpatient follow up, to return to the emergency department if symptoms worsen or persist or if there are any questions or concerns that arise at home. Special discussion: I discussed with the patient/guardian in detail that at this point there is no indication for admission to the hospital. It is understood, however, that if the symptoms persist or worsen the patient needs to return immediately for re-evaluation. ED course: Patient feels much better, no oxygen requirement. Will discharge home with antibiotics, steroids, refill of nebulizer medication.. 08/01 10:28 Order name: Blood Culture Adult (2) rn 08/01 10:28 Order name: CBC with Diff; Complete Time: 11:19 rn 08/01 10: Order name: CMP; Complete Time: 11:47 rn 08/01 10: Order name: Lactate w/ 2H reflex if indic.; Complete Time: 11:47 rn 08/01 10:28 Order name: Protime (+inr); Complete Time: 11:19 rn 08/01 10:28 Order name: Ptt, Activated; Complete Time: 11:19 rn 08/01 10:28 Order name: Flu; Complete Time: 11:47 rn 08/01 10:28 Order name: Chest Single View XRAY; Complete Time: 10:44 rn 08/01 10:28 Order name: EKG; Complete Time: 10:28 rn 08/01 10:28 Order name: Cardiac monitoring; Complete Time: 10:58 rn 08/01 10:28 Order name: EKG - Nurse/Tech; Complete Time: 11:15 rn 08/01 10:28 Order name: IV Saline Lock - Large Bore; Complete Time: 10:58 rn 08/01 10:28 Order name: Labs collected and sent; Complete Time: 10:58 rn 08/01 10:28 Order name: O2 Per Protocol; Complete Time: :58 rn 08/01 10:28 Order name: O2 Sat Monitoring; Complete Time: 10:58 rn 08/01 10:28 Order name: Vital Signs; Complete Time: 10:58 rn EC:08 Rate is 94 beats/min. Rhythm is regular. QRS Jackson is Normal. AL interval is normal. QRS rn interval is normal. QT interval is normal. No Q waves. T waves are Normal. No ST changes noted. Clinical impression: NSR w/ Non-specific ST/T Changes. Interpreted by me. Reviewed by me. Administered Medications: 10:44 Drug: Levalbuterol Inhalation 1.25 mg Inhalation once Route: Inhalation; cm10 10:44 Drug: Levalbuterol Inhalation 1.25 mg Inhalation once Route: Inhalation; cm10 10:44 Drug: Levalbuterol Inhalation 1.25 mg Inhalation once Route: Inhalation; cm10 10:44 Drug: Ipratropium Inhalation Aerosol 0.5 mg Inhalation once Route: Inhalation; cm10 11:00 Drug: MethylPrednisoLONE IVP 125 mg IVP once Route: IVP; Site: right antecubital; cm10 11:20 Follow up: Response: No adverse reaction cm10 Disposition Summary: 08/01/24 12:25 Discharge Ordered Notes: Location: Home rn Problem: an acute exacerbation rn Symptoms: have improved rn Condition: Stable rn Diagnosis - COPD/ Chronic obstructive pulmonary disease with (acute) exacerbation rn Followup: rn - With: Private Physician - When: As needed - Reason: Recheck today's complaints, Re-evaluation by your physician Discharge Instructions: - Discharge Summary Sheet rn - Chronic Obstructive Pulmonary Disease Exacerbation rn Forms: - Medication Reconciliation Form rn - 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 Day 2, 3, 4 , 5 take one (1) tablet once daily.; 6 tablet; Refills: 0, Product Selection Permitted Signatures: Dispatcher [employer] EDAlton Kaiser MD MD rn Lewis, Lynsay, RN RN ll1 Marilyn Diez RN RN cm10
--- NOTE | 2024-08-01 12:26 | ER ---
Nurse's Notes [facility] Name: Sahra High Age: 83 yrs Sex: Female : 1940 Arrival Date: 08/01/2024 Time: 10:02 Bed 15 Private MD: Diagnosis: COPD/ Chronic obstructive pulmonary disease with (acute) exacerbation Presentation: 08/01 10:18 Chief complaint: Patient states: Cough, SOB with fatigue for 5 days. No fever. ll1 Coronavirus screen: Client denies travel out of the [place] in the last 14 days. cough unrelated to allergies, difficulty breathing, shortness of breath, Client presents with at least one sign or symptom that may indicate coronavirus-19. Standard/surgical mask placed on the client. Ebola Screen: Patient denies travel to an Ebola-affected area in the 21 days before illness onset. Initial Sepsis Screen: Does the patient meet any 2 criteria? No. Patient's initial sepsis screen is negative. Does the patient have a suspected source of infection? No. Patient's initial sepsis screen is negative. Risk Assessment: Do you want to hurt yourself or someone else? Patient reports no desire to harm self or others. Onset of symptoms was July 28, 2024. 10:18 Method Of Arrival: Ambulatory ll1 10:18 Acuity: LA NENA 3 ll1 Triage Assessment: 10:20 General: Appears uncomfortable, Behavior is calm, cooperative, appropriate for age. ll1 General: Reports feeling ill for fatigue for. Pain: Denies pain. Neuro: Reports weakness. Respiratory: Reports shortness of breath on exertion cough that is Onset: The symptoms/episode began/occurred 5 days ago. 12:38 Respiratory: the patient reports symptoms have resolved. cm10 Historical: - Allergies: 10:18 No Known Drug Allergies; ll1 - PMHx: 10:18 Asthma; Depression; Hypertension; ll1 - PSHx: 10:18 hysterectomy; ll1 - Immunization history:: Adult Immunizations up to date. - Infectious Disease History:: Denies. - Social history:: Smoking status: Patient denies any tobacco usage or history of. - Family history:: not pertinent. - Hospitalizations: : No recent hospitalization is reported. Screenin:19 [facility] ED Fall Risk Assessment (Adult) History of falling in the last 3 months, cm10 including since admission No falls in past 3 months (0 pts) Confusion or Disorientation No (0 pts) Intoxicated or Sedated No (0 pts) Impaired Gait No (0 pts) Mobility Assist Device Used No (0 pt) Altered Elimination No (0 pt) Score/Fall Risk Level 0 - 2 = Low Risk Oriented to surroundings, Maintained a safe environment, Hourly rounding (assess needs \T\ fall precautionary measures) done. Abuse screen: Denies threats or abuse. Denies injuries from another. Nutritional screening: No deficits noted. Tuberculosis screening: No symptoms or risk factors identified. Assessment: 10:44 General: Appears in no apparent distress. comfortable, Behavior is calm, cooperative. cm10 Neuro: No deficits noted. Level of Consciousness is awake, alert, obeys commands, Oriented to person, place, time, situation, Appropriate for age. Cardiovascular: No deficits noted. Patient's skin is warm and dry. Respiratory: No deficits noted. Airway is patent Respiratory effort is even, unlabored, Respiratory pattern is regular, symmetrical, Breath sounds are clear in right posterior upper lobe, right posterior middle lobe and right posterior lower lobe Breath sounds are diminished in left posterior upper lobe and left posterior lower lobe. Derm: No deficits noted. Skin is healthy with good turgor. Musculoskeletal: No deficits noted. Range of motion: intact in all extremities. 11:18 Cardiovascular: Rhythm is regular. Respiratory: Breath sounds are clear bilaterally. cm10 11:19 Reassessment: Patient states feeling better. Patient states symptoms have improved. cm10 12:22 Reassessment: Patient appears in no apparent distress at this time. Patient and/or cm10 family updated on plan of care and expected duration. Pain level reassessed. Patient is alert, oriented x 3, equal unlabored respirations, skin warm/dry/pink. Patient states feeling better. Patient states symptoms have improved. Vital Signs: 10:18 BP 173 / 116; Pulse 101; Resp 24; Temp 97.5; Pulse Ox 97% on R/A; Weight 44 kg (R); ll1 Height 5 ft. 0 in. ; Pain 0/10; 10:45 BP 160 / 93; Pulse 82; Resp 20; Pulse Ox 100% on Nebulizer Mask; cm10 11:00 BP 137 / 97; Pulse 104; Resp 21; Pulse Ox 98% on R/A; cm10 12:00 BP 132 / 72; Pulse 86; Resp 17; Pulse Ox 93% on R/A; cm10 10:18 Body Mass Index 18.94 (44.00 kg, 152.4 cm) ll1 10:18 Pain Scale: Adult ll1 ED Course: 10:07 Patient arrived in ED. mg5 10:14 Alton Raymundo MD is Attending Physician. rn 10:18 Arm band placed on Patient placed in an exam room, on a stretcher. ll1 10:20 Triage completed. ll1 10:34 Marilyn Diez, RN is Primary Nurse. cm10 10:37 Chest Single View XRAY In Process Unspecified. EDMS 10:50 Initial lab(s) drawn, by me, sent to lab. First set of blood cultures drawn by me. cm10 Inserted saline lock: 20 gauge in right antecubital area, using aseptic technique. Blood collected. Flushed with 10 mL NS. 10:58 Ptt, Activated Sent. cm10 10:58 Protime (+inr) Sent. cm10 10:58 Lactate w/ 2H reflex if indic. Sent. cm10 10:58 CMP Sent. cm10 10:58 CBC with Diff Sent. cm10 11:10 Second set of blood cultures drawn by me, Flu and/or RSV swab sent to lab. cm10 11:10 Initial Neb Treatment Given as ordered Patient was instructed and evaluated on cm10 procedure Patient tolerated procedure well without adverse effect. 11:19 Patient has correct armband on for positive identification. Bed in low position. Call cm10 light in reach. Side rails up X 1. Provided Education on: ER PROCESS AND PROCEDURES. Client placed on continuous cardiac and pulse oximetry monitoring. NIBP monitoring applied. shelter monitor on. 11:19 EKG done, by ED staff, reviewed by Alton Raymundo MD. cm10 12:38 No provider procedures requiring assistance completed. IV discontinued, intact, cm10 bleeding controlled, No redness/swelling at site. Pressure dressing applied. Administered Medications: 10:44 Drug: Levalbuterol Inhalation 1.25 mg Inhalation once Route: Inhalation; cm10 10:44 Drug: Levalbuterol Inhalation 1.25 mg Inhalation once Route: Inhalation; cm10 10:44 Drug: Levalbuterol Inhalation 1.25 mg Inhalation once Route: Inhalation; cm10 10:44 Drug: Ipratropium Inhalation Aerosol 0.5 mg Inhalation once Route: Inhalation; cm10 11:00 Drug: MethylPrednisoLONE IVP 125 mg IVP once Route: IVP; Site: right antecubital; 10 11:20 Follow up: Response: No adverse reaction cm10 Medication: 11:20 VIS not applicable for this client. cm10 Outcome: 12:25 Discharge ordered by . sari 12:37 Discharged to home ambulatory, with friend, cm10 12:37 Condition: good 12:37 Discharge instructions given to patient, Instructed on discharge instructions, follow up and referral plans. medication usage, Demonstrated understanding of instructions, follow-up care, medications, Prescriptions given X 3, 12:38 Patient left the ED. cm10 Signatures: Dispatcher [employer] EDMS Alton Raymundo MD MD rn Lewis, Lynsay, RN RN ll1 Marilyn Diez RN RN cm10 Elina Espinoza mg5
[2024-08-01 12:51] VITALS: TEMP 97.5
[2024-08-01 13:02] VITALS: BP 132/72; O2SAT 93
--- NOTE | 2024-08-04 14:17 | EKG ---
Test Date: 2024-08-01 Test Time: 11:06:44 Commercial Green Building Architect: JANUARY MEASUREMENT RESULTS: Intervals: Rate: 94 HI: 146 QRSD: 68 QT: 350 QTc: 437 [place]: P: 82 HI: 146 QRS: 75 T: 123 INTERPRETIVE STATEMENTS: Sinus rhythm with marked sinus arrhythmia Nonspecific ST abnormality Abnormal ECG Compared to ECG 11/25/2021 13:01:00 ST (T wave) deviation now present Electronically Signed On 08-04-24 14:14:49 [employer]OL TROUBLE [employer] by Harvinder Sheth
== END 2024-08-01 12:38 | disposition home or self-care (01) ==
LOC: ER 10:02
DX: J44.1 Chronic obstructive pulmonary disease with (acute) exacerbation (principal); I10 Essential (primary) hypertension
CPT/HCPCS: 93005; 87040 ×2; 85025; 36415; 85610; 83605; 85730; 80053; 87804 ×2; 71045; 94640; 96374; 99285; J7614; J7644; J2919

== ENCOUNTER 2024-08-29 22:37 | Emergency (ER) | payer OTHER ==
[2024-08-29] MEDS ORDERED: FAMOTIDINE 20 MG/2 ML VIAL IV ONE (23:16)
[2024-08-29] MEDS ORDERED: ONDANSETRON 4 MG/2 ML VIAL ONE (23:16)
[2024-08-29 23:50] LABS: Absolute Lymphocytes (CBC) 1.2 K/uL (0.7-4.9); Absolute Monocytes 0.6 K/uL (0.1-1.3); Basophils % 0.4 % (0-1.3); Eosinophils % 0.5 % (0-4.4); Hemoglobin 9.4 g/dL (12.0-15.0); Lymphocytes % 15.4 % (15.3-44.8); MCH 30.1 pg (27.0-35.0); MCHC 32.5 g/dL (32.0-36.0); MCV 92.5 fL (80-100); Monocytes % 7.6 % (3.3-12.3); Neutrophils % 76.1 % (41.7-73.7); Platelets 299 thou/uL (152-406); RBC Red Blood Cell Count 3.14 M/uL (3.86-4.86)
[2024-08-29 23:57] LABS: PT Prothrombin Time 13.6 SECONDS (9.4-12.5); Protime INR 1.22
[2024-08-30 00:09] LABS: ALT/SGPT 15 U/L (13-56); AST/SGOT 13 U/L (15-37); Albumin 3.1 g/dL (3.4-5.0); Albumin/Globulin Ratio 1.1 (1.1-1.8); Alkaline Phosphatase 66 U/L (45-117); BUN Blood Urea Nitrogen 35 mg/dL (7-18); Bicarbonate 29 mEq/L (21-32); Bilirubin Total 0.4 mg/dL (0.2-1.0); Globulin 2.7 g/dL (2.3-3.5); Glomerular Filtration Rate 39 ml/min (=/>90); Glucose Level 124 mg/dL (74-106); Lipase 146 U/L (13-75); Magnesium 2.4 mg/dL (1.6-2.4); Protein, Total 5.8 g/dL (6.4-8.2); Sodium Level 140 mEq/L (136-145); Troponin High Sensitivity 10.1 pg/mL (<58.9)
[2024-08-30 00:10] LABS: Bilirubin Direct < 0.2 mg/dL (0-0.2); Bilirubin Indirect, Calculated 0.2 mg/dL (0.2-0.8)
[2024-08-30 00:20] LABS: SARS-CoV-2 Antigen CONTROL BLUE LINE VIS/BG OK; SARS-CoV-2 Antigen Rapid Res Negative (Negative)
--- NOTE | 2024-08-30 02:40 | RAD REPORT ---
EXAM: Chest Abdomen Pelvis W Cont CLINICAL HISTORY: upper abdomen pain;Chest pain COMPARISON: Single view chest 08/29/2024 TECHNIQUE: CT of the chest, abdomen and pelvis performed following the administration of IV contrast. No oral contrast. This exam was performed according to our departmental dose-optimization program, which includes automated exposure control, adjustment of the mA and/or kV according to patient size a nd/or use of iterative reconstruction technique. FINDINGS: Chest: Thyroid: No abnormalities of the visualized thyroid gland. Great Vessels: Great vessels have normal anatomic configuration. Thoracic Aorta: No aneurysm. No visualized dissection. Pulmonary arteries: The main pulmonary artery is not dilated. No central pulmonary embolism. Heart: Small pericardial effusion. Coronary artery calcifications. Lymph Nodes: Calcified mediastinal lymph nodes compatible with old granulomatous disease. No enlarged mediastinal, hilar, or axillary lymph nodes identified. Esophagus: No abnormalities of the esophagus identified Other: No additional findings. Lungs: Clusters of tiny nodular and groundglass opacities in the right lower lobe probably due to inf ection/bronchiolitis. Focal opacities in the medial left lower lobe probably due to scarring or atelectasis. Additional linear opacities in the right middle lobe and lingula probably due to scarrin g. There is a 3 mm nodule in the lateral right middle lobe. Per fraction Society guidelines, no routine follow-up imaging is recommended. Mild apical scarring. Pleura: No pleural effusion or pneumothorax. Trachea/Airways: No abnormalities of the visualized trachea or airways. Abdomen: Liver: The liver has normal size and density. No intrahepatic mass or biliary dilatation. Gallbladder: No calcified gallstones. Spleen, Pancreas, and Adrenal Glands: The spleen, pancreas, and adrenal glands are unremarkable. Kidneys: No suspicious mass. No urinary tract calculi. Parapelvic renal cysts. No definite hydr onephrosis. Vasculature: The aorta and IVC have normal caliber and position. Atherosclerotic plaque without dis section. Stomach: Circumferential wall thickening in the distal stomach. Proximal stomach is distended. Other: No free intraperitoneal air. No free fluid or lymphadenopathy. Pelvis: Bladder: Urinary bladder is unremarkable. Bowel: No dilated loops of large or small bowel.No acute inflammatory changes. Appendix: Not definitively visualized. Pelvis: Status post hysterectomy. Left adnexal cyst measuring 4.7 x 3.6 cm. Bones: No destructive bone lesions identified. IMPRESSION: 1. Clusters of tiny nodular and groundglass opacities in the right lower lobe probably due to infec tion/bronchiolitis. 2. Circumferential wall thickening in the distal stomach. This could be due to gastritis. Endoscopy could be performed for further evaluation and to exclude neoplasm. 3. Left adnexal cyst measuring up to 4.7 cm.Recommend follow-up pelvic ultrasound in 6-12 months. R eference: SARAY 2019;17(2):[id number] Electronically signed by: Alva Vivas MD 08/30/2024 01:59 AM [facility] Due to temporary technical issues with the PACS/RocksBox reporting system, reports are being aline d by the in-house radiologist without review as a courtesy to ensure prompt reporting the interpreting radiologist is fully responsible for the content of the report. Transcribed Date/Time: 08/30/2024 2:40 AM
--- NOTE | 2024-08-30 03:53 | ER ---
Nurse's Notes [facility] Name: Sahra High Age: 83 yrs Sex: Female : 1940 Arrival Date: 08/29/2024 Time: 22:37 Bed 7 Private MD: Diagnosis: Right lower lung bronchiectasis, acute chest discomfort, noncardiac chest pain, major depressive disorder,, chronic use of antidepressant, acute cough, right lower lung pneumonia Presentation: 08/29 22:57 Chief complaint: Patient states: cough, congestion, n/v, intermittent fever since me1 Monday and now she has chest wall pain w/cough. Coronavirus screen: Vaccine status: Patient reports receiving the 2nd dose of the covid vaccine. Ebola Screen: No symptoms or risks identified at this time. Initial Sepsis Screen: Does the patient meet any 2 criteria? No. Patient's initial sepsis screen is negative. Risk Assessment: Do you want to hurt yourself or someone else? Patient reports no desire to harm self or others. Onset of symptoms was August 24, 2024. 22:57 [place] Of [place] [facility] [place] Acuity: [place] NENA 3 me1 08/30 04:09 Initial Sepsis Screen: Does the patient have a suspected source of infection? No. ay Patient's initial sepsis screen is negative. Historical: - Allergies: 08/29 22:59 No Known Allergies; me1 - PMHx: 22:59 Asthma; Hypertension; Depression; me1 - PSHx: 22:59 hysterectomy; me1 - Immunization history:: Adult Immunizations up to date. - Infectious Disease History:: Denies. - Social history:: Smoking status: Patient denies any tobacco usage or history of. Screenin:25 [facility] ED Fall Risk Assessment (Adult) History of falling in the last 3 months, ay including since admission No falls in past 3 months (0 pts) Confusion or Disorientation No (0 pts) Intoxicated or Sedated No (0 pts) Impaired Gait No (0 pts) Mobility Assist Device Used No (0 pt) Altered Elimination No (0 pt) Score/Fall Risk Level 0 - 2 = Low Risk. Abuse screen: Denies threats or abuse. Denies injuries from another. Nutritional screening: No deficits noted. Tuberculosis screening: No symptoms or risk factors identified. Assessment: 23:25 General: Appears in no apparent distress. uncomfortable, Behavior is calm, cooperative. ay Pain: Denies pain. Pain does not radiate. Neuro: Level of Consciousness is awake, alert, obeys commands, Oriented to person, place, time, situation, Lottery Clerk are equal bilaterally Speech is normal. Cardiovascular: Heart tones S1 S2 Capillary refill < 3 seconds. Respiratory: Airway is patent Respiratory effort is even, unlabored, Respiratory pattern is regular, symmetrical. GI: Abdomen is flat, Bowel sounds present X 4 quads. Abd is soft X 4 quads discomfort in lower abd Patient currently denies pain. : No signs and/or symptoms were reported regarding the genitourinary system. EENT: No signs and/or symptoms were reported regarding the EENT system. Derm: Skin is intact. Musculoskeletal: No signs and/or symptoms reported regarding the musculoskeletal system. 23:35 Pain: Pain began 5 days ago. ay 08/30 01:43 Reassessment: Patient appears in no apparent distress at this time. Patient is alert, ay oriented x 3, equal unlabored respirations, skin warm/dry/pink. Patient states feeling better. Pain:. Vital Signs: 08/29 22:57 BP 118 / 72; Pulse 89; Resp 18; Temp 98.1; Pulse Ox 95% on R/A; Weight 43.54 kg; Height me1 5 ft. 0 in. ; Pain 5/10; 23:26 BP 125 / 68; Pulse 78; Resp 19; Temp 98.1; Pulse Ox 99% ; bm8 08/30 01:41 BP 135 / 78; Pulse 90; Resp 16; Pulse Ox 97% on R/A; ay 03:22 BP 121 / 66; Pulse 72; Resp 18; Pulse Ox 98% ; cp4 08/29 22:57 Body Mass Index 18.75 (43.54 kg, 152.4 cm) me1 08/29 22:57 Pain Scale: Adult me1 War Coma Score: 08/29 23:25 Eye Response: spontaneous(4). Motor Response: obeys commands(6). Verbal Response: ay oriented(5). Total: 15. ED Course: 22:40 Patient arrived in ED. mr 22:45 Bran Polanco PA is PHCP. cp 22:45 Thiago Michael MD is Attending Physician. cp 22:59 Triage completed. me1 22:59 Arm band placed on Patient placed in an exam room. me1 23:24 No provider procedures requiring assistance completed. Initial lab(s) drawn, by me, kristina sent to lab. EKG done, by ED staff, reviewed by Bran SIERRA COVID swab sent to lab. Flu and/or RSV swab sent to lab. Strep swab sent to lab. Inserted saline lock: 20 gauge in right forearm, using aseptic technique. Blood collected. Flushed with 10 mL NS. Patient maintains SpO2 saturation greater than 95% on room air. 23:25 Indira Thomas, RN is Primary Nurse. ay 23:25 Patient has correct armband on for positive identification. Bed in low position. Call ay light in reach. Side rails up X2. Adult w/ patient. Provided Education on: plan of care. 23:37 XRAY Chest (1 view) In Process Unspecified. EDMS 08/30 00:30 CT Chest, Abdomen, Pelvis - W/Contrast In Process Unspecified. EDMS 03:51 Brad De Luna DO is Referral Physician. sp4 04:07 Client placed on continuous cardiac and pulse oximetry monitoring. NIBP monitoring ay applied. 04:07 IV discontinued, intact, bleeding controlled, No redness/swelling at site. Pressure ay dressing applied. Administered Medications: 08/29 23:25 Drug: Ondansetron IVP 4 mg IVP once; over 2 minutes Route: IVP; Site: right hand; ay 08/30 00:21 Follow up: Response: No adverse reaction ay 08/29 23:25 Drug: Famotidine IVP 20 mg IVP once; dilute with 10 mL 0.9% NaCl; give over 2 minutes ay Route: IVP; Site: right hand; 08/30 00:21 Follow up: Response: No adverse reaction ay 04:06 CANCELLED (Patient Refused): [id number] mg PO once bm8 04:07 CANCELLED (Patient Refused): ondansetron4 mg PO once bm8 Medication: 08/29 23:25 VIS not applicable for this client. ay Outcome: 08/30 03:52 Discharge ordered by . sp4 04:07 Discharged to home ambulatory, ay 04:07 Condition: stable 04:07 Discharge instructions given to patient, Instructed on discharge instructions, follow up and referral plans. medication usage, Demonstrated understanding of instructions, follow-up care, medications, Prescriptions given X 3, 04:09 Patient left the ED. ay Signatures: Dispatcher [employer] EDMS Demetrice Santos, Reg Reg mr Bran Polanco PA PA cp Potepalov, Sergey, MD MD sp4 Kellie Ivy, PAMELLA RN me1 Carlita Bahena cp4 Robert Singh RN RN bm8 Indira Thomas RN RN ay
--- NOTE | 2024-08-30 03:53 | EDPHYS ---
Physician Documentation [facility] Name: Sahra High Age: 83 yrs Sex: Female : 1940 Arrival Date: 08/29/2024 Time: 22:37 Bed 7 Private MD: ED Physician Thiago Michael HPI: 08/29 23:10 This 83 yrs old Female presents to ER via Wheelchair with complaints of Chest Wall Pain.cp 23:10 The patient or guardian reports chest pain that is located primarily in the anterior cp chest wall. 23:10 Onset: gradually, and became worse today. Associated signs and symptoms: Pertinent cp positives: abdominal pain, cough, fever. The chest pain is described as aching. Historical: - Allergies: 22:59 No Known Allergies; me1 - PMHx: 22:59 Asthma; Hypertension; Depression; me1 - PSHx: 22:59 hysterectomy; me1 - Immunization history:: Adult Immunizations up to date. - Infectious Disease History:: Denies. - Social history:: Smoking status: Patient denies any tobacco usage or history of. ROS: 23:15 Constitutional: Positive for fever, cp 23:15 Eyes: Negative for injury, pain, redness, and discharge, cp 23:15 Cardiovascular: Positive for chest pain, Negative for edema, palpitations, 23:15 Respiratory: Positive for cough, 23:15 Abdomen/GI: Positive for abdominal pain, nausea, Negative for vomiting, diarrhea, constipation, 23:15 Neuro: Negative for altered mental status, dizziness, headache, numbness, syncope, cp weakness, 23:15 : Negative for urinary symptoms, cp 23:15 All other systems are negative, Exam: 23:20 Constitutional: The patient appears in no acute distress, alert, awake, cp non-diaphoretic, non-toxic, well developed, frail, 23:20 Head/Face: Normocephalic, atraumatic. cp 23:20 Eyes: Periorbital structures: appear normal, Conjunctiva: normal, no exudate, no injection, Sclera: no appreciated abnormality, Lids and lashes: appear normal, bilaterally, 23:20 ENT: External ear(s): are unremarkable, Nose: is normal, Mouth: Lips: moist, Oral mucosa: moist, Posterior pharynx: Airway: no evidence of obstruction, patent, 23:20 Chest/axilla: Inspection: normal, 23:20 Cardiovascular: Rate: normal, Rhythm: regular, Edema: is not appreciated, JVD: is not appreciated, 23:20 Respiratory: the patient does not display signs of respiratory distress, Respirations: normal, no use of accessory muscles, no retractions, labored breathing, is not present, Breath sounds: are clear throughout, no decreased breath sounds, no stridor, no wheezing, 23:20 Abdomen/GI: Inspection: abdomen appears normal, Bowel sounds: active, all quadrants, Palpation: soft, in all quadrants, mild abdominal tenderness, in the epigastric area, right upper quadrant and left upper quadrant, rebound tenderness, is not appreciated, voluntary guarding, is elicited in the epigastric area, right upper quadrant and left upper quadrant, 23:20 Back: CVA tenderness, is absent, 23:20 Neuro: Orientation: to person, place \T\ time. Mentation: is normal, Motor: moves all fours, strength is normal, 23:26 ECG was reviewed by the Attending Physician. Vital Signs: 22:57 BP 118 / 72; Pulse 89; Resp 18; Temp 98.1; Pulse Ox 95% on R/A; Weight 43.54 kg; Height me1 5 ft. 0 in. ; Pain 5/10; 23:26 BP 125 / 68; Pulse 78; Resp 19; Temp 98.1; Pulse Ox 99% ; bm8 12 01:41 BP 135 / 78; Pulse 90; Resp 16; Pulse Ox 97% on R/A; ay 03:22 BP 121 / 66; Pulse 72; Resp 18; Pulse Ox 98% ; cp4 08/29 22:57 Body Mass Index 18.75 (43.54 kg, 152.4 cm) me1 08/29 22:57 Pain Scale: Adult me1 Palmer Coma Score: 08/29 23:25 Eye Response: spontaneous(4). Motor Response: obeys commands(6). Verbal Response: ay oriented(5). Total: 15. MDM: 23:02 Medical Screening Exam initiated cp 08/30 03:49 ED course: EXAM: Chest Abdomen Pelvis W Cont CLINICAL HISTORY: upper abdomen pain;Chest sp4 pain COMPARISON: Single view chest 08/29/2024 TECHNIQUE: CT of the chest, abdomen and pelvis performed following the administration of IV contrast. No oral contrast. This exam was performed according to our departmental dose-optimization program, which includes automated exposure control, adjustment of the mA and/or kV according to patient size and/or use of iterative reconstruction technique. FINDINGS: Chest: Thyroid:No abnormalities of the visualized thyroid gland. Great Vessels:Great vessels have normal anatomic configuration. Thoracic Aorta:No aneurysm. No visualized dissection. Pulmonary arteries:The main pulmonary artery is not dilated. No central pulmonary embolism. Heart:Small pericardial effusion. Coronary artery calcifications. Lymph Nodes:Calcified mediastinal lymph nodes compatible with old granulomatous disease. No enlarged mediastinal, hilar, or axillary lymph nodes identified. Esophagus:No abnormalities of the esophagus identified Other:No additional findings. Lungs:Clusters of tiny nodular and groundglass opacities in the right lower lobe probably due to infection/bronchiolitis. Focal opacities in the medial left lower lobe probably due to scarring or atelectasis. Additional linear opacities in the right middle lobe and lingula probably due to scarring. There is a 3 mm nodule in the lateral right middle lobe. Per fraction Society guidelines, no routine follow-up imaging is recommended. Mild apical scarring. Pleura:No pleural effusion or pneumothorax. Trachea/Airways:No abnormalities of the visualized trachea or airways. Abdomen: Liver: The liver has normal size and density. No intrahepatic mass or biliary dilatation. Gallbladder: No calcified gallstones. Spleen, Pancreas, and Adrenal Glands: The spleen, pancreas, and adrenal glands are unremarkable. Kidneys: No suspicious mass. No urinary tract calculi. Parapelvic renal cysts. No definite hydronephrosis. Vasculature: The aorta and IVC have normal caliber and position. Atherosclerotic plaque without dissection. Stomach: Circumferential wall thickening in the distal stomach. Proximal stomach is distended. Other: No free intraperitoneal air. No free fluid or lymphadenopathy. Pelvis: Bladder: Urinary bladder is unremarkable. Bowel: No dilated loops of large or small bowel.No acute inflammatory changes. Appendix: Not definitively visualized. Pelvis:Status post hysterectomy. Left adnexal cyst measuring 4.7 x 3.6 cm. Bones: No destructive bone lesions identified. IMPRESSION: 1. Clusters of tiny nodular and groundglass opacities in the right lower lobe probably due to infection/bronchiolitis. 2. Circumferential wall thickening in the distal stomach. This could be due to gastritis. Endoscopy could be performed for further evaluation and to exclude neoplasm. 3. Left adnexal cyst measuring up to 4.7 cm.Recommend follow-up pelvic ultrasound in 6-12 months. Oct;172):[id number] Electronically signed by: Alva Vivas MD 08/30/2024 01:59 AM . ED course: EXAM: XR Chest, 1 View CLINICAL HISTORY: Cough, fever. TECHNIQUE: Frontal view of the chest. COMPARISON: XR Chest 07/19/2022. FINDINGS: Lungs: Hyperinflation and coarsened interstitial markings. Minimal lateral right basilar hazy opacification. Left basilar calcified granuloma. Pleural space: Unremarkable. No pneumothorax. Heart: Unremarkable. No cardiomegaly. Mediastinum: Unremarkable. Normal mediastinal contour. Bones/joints: Multilevel spondylosis. No acute fracture. Vasculature: Thoracic aortic atherosclerosis. IMPRESSION: Minimal lateral right basilar hazy opacification (atelectasis and/or infiltrate) . 08/29 23:09 Order name: Basic Metabolic Panel; Complete Time: 01:12 08/30 01:13 Interpretation: Normal except: CL 108; GLUC 124; BUN 35; CRE 1.33; GFR 39. 08/29 23:09 Order name: CBC with Diff; Complete Time: 00:06 08/30 00:06 Interpretation: Normal except: RBC 3.14; HGB 9.4; HCT 29.0; BRANDON% 76.1. 08/29 23:09 Order name: LFT's; Complete Time: 01:12 08/30 01:13 Interpretation: Normal except: AST 13; TP 5.8; ALB 3.1. 08/29 23:09 Order name: Magnesium; Complete Time: 01:12 08/29 23:09 Order name: PT-INR; Complete Time: 00:06 08/29 23:09 Order name: Troponin HS; Complete Time: 01:12 08/29 23:09 Order name: Lipase; Complete Time: 01:12 08/30 01:13 Interpretation: Abnormal: LIP 146. 08/29 23:09 Order name: Influenza Screen (a \T\ B); Complete Time: 01:12 08/29 23:09 Order name: SARS RAPID; Complete Time: 01:12 08/30 01:13 Interpretation: Reviewed. 08/29 23:09 Order name: Strep; Complete Time: 00:06 08/29 23:09 Order name: RSV; Complete Time: 01:12 cp 08/30 00:01 Order name: Throat Culture EDMS 08/29 23:09 Order name: XRAY Chest (1 view) 08/30 00:07 Order name: CT Chest, Abdomen, Pelvis - W/Contrast 08/29 23:09 Order name: EKG; Complete Time: 23:09 08/29 23:09 Order name: Cardiac monitoring; Complete Time: 23:23 08/29 23:09 Order name: EKG - Nurse/Tech; Complete Time: 23:24 08/29 23:09 Order name: IV Saline Lock; Complete Time: 23:24 08/29 23:09 Order name: Labs collected and sent; Complete Time: 23:24 08/29 23:09 Order name: O2 Per Protocol; Complete Time: 23:24 08/29 23:09 Order name: O2 Sat Monitoring; Complete Time: 23:24 cp EC/26 23: Rate is 82 beats/min. Rhythm is regular. SD interval is normal. QRS interval is normal. cp QT interval is normal. T waves are Inverted in leads aVL, aVR, V2. Interpreted by me. Reviewed by me. Administered Medications: 23:25 Drug: Ondansetron IVP 4 mg IVP once; over 2 minutes Route: IVP; Site: right hand; 08/30 00:21 Follow up: Response: No adverse reaction 08/29 23:25 Drug: Famotidine IVP 20 mg IVP once; dilute with 10 mL 0.9% NaCl; give over 2 minutes ay Route: IVP; Site: right hand; 08/30 00:21 Follow up: Response: No adverse reaction 04:06 CANCELLED (Patient Refused): [id number] mg PO once bm8 04:07 CANCELLED (Patient Refused): ondansetron4 mg PO once bm8 Disposition: 03:49 Co-signature as Attending Physician, Thiago Michael MD I agree with the assessment sp4 and plan of care. I reviewed the patient's care provided by Advanced Practice Provider \T\ agree w/ the diagnosis \T\ care plan. I personally saw the pt \T\ performed a substantive portion of the visit, incldng all aspects of the (History/Exam/Medical Decision Making). Disposition Summary: 08/30/24 03:52 Discharge Ordered Notes: Location: Home sp4 Problem: new sp4 Symptoms: have improved sp4 Condition: Stable sp4 Diagnosis - Right lower lung bronchiectasis, acute chest discomfort, noncardiac chest pain, sp4 major depressive disorder,, chronic use of antidepressant, acute cough, right lower lung pneumonia Followup: sp4 - With: Brad De Luna DO - When: 7 - 10 days - Reason: Recheck today's complaints Discharge Instructions: - Discharge Summary Sheet sp4 - Community-Acquired Pneumonia, Adult, [place] sp4 Forms: - Patient Portal Instructions sp4 Prescriptions: - Lexapro 10 mg Oral tablet - take 1 tablet ORAL route daily; 90 tablet; Refills: 0, Product Selection sp4 Permitted - dextromethorphan-guaifenesin 20-400 mg Oral tablet - take 1 tablet ORAL route every 8 hours PRN cough; 40 tablet; Refills: 0, sp4 Product Selection Permitted - Albuterol Sulfate 2.5 mg /3 mL (0.083 %) Inhalation Solution for Nebulization - inhale 1 unit NEBULIZATION route every 6 hours As needed Use nebulized Q 6 sp4 hours PRN wheezing , Dispense 50 vials; 50 unit; Refills: 0, Product Selection Permitted - Zithromax Z-Heber 250 mg Oral Tablet - take 1 tablet ORAL route as directed for 5 days Day 1 - take two (2) tablets sp4 one time. Day 2, 3, 4 , 5 take one (1) tablet once daily.; 6 tablet; Refills: 0, Product Selection Permitted Signatures: Dispatcher [employer] EDMS Bran Polanco PA PA cp Potepalov, Sergey, MD MD sp4 Kellie Ivy RN RN me1 Indira Thomas RN RN ay McDonald, Brad RN bm8 Corrections: (The following items were deleted from the chart) 08/29 23:09 23:09 BASIC METABOLIC PANEL+C.LAB.BRZ ordered. EDMS EDMS 23: 23:09 CBC+H.LAB.BRZ ordered. EDMS EDMS 23:09 23:09 HEPATIC FUNCTION+C.LAB.BRZ ordered. EDMS EDMS 23: 23:09 MAGNESIUM+C.LAB.BRZ ordered. EDMS EDMS : 23:09 PROTIME (+INR)+COAG.LAB.BRZ ordered. EDMS EDMS : 23:09 Troponin High Sensitivity+C.LAB.BRZ ordered. EDMS EDMS : 23:09 LIPASE+C.LAB.BRZ ordered. EDMS EDMS : 23:09 Influenza Screen (A \T\ B)+BA.LAB.BRZ ordered. EDMS EDMS 23:09 SARS-COV-2 Antigen Rapid+I.LAB.BRZ ordered. EDMS EDMS : 23:09 Group A Streptococcus Rapid Sc+BA.LAB.BRZ ordered. EDMS EDMS : 23:09 Respiratory Syncytial Virus Ag+BA.LAB.BRZ ordered. EDMS EDMS 08/30 04:06 03:52 AZITHromycin PO 500 mg PO once ordered. sp4 bm8 04:07 03:52 Ondansetron PO 4 mg PO once ordered. sp4 bm8
[2024-08-30 04:15] VITALS: TEMP 98.1
[2024-08-30 04:20] VITALS: BP 121/66; O2SAT 98
--- NOTE | 2024-08-30 06:10 | RAD REPORT ---
EXAM: XR Chest, 1 View CLINICAL HISTORY: Cough, fever. TECHNIQUE: Frontal view of the chest. COMPARISON: XR Chest 07/19/2022. FINDINGS: Lungs: Hyperinflation and coarsened interstitial markings. Minimal lateral right basilar hazy opaci fication. Left basilar calcified granuloma. Pleural space: Unremarkable. No pneumothorax. Heart: Unremarkable. No cardiomegaly. Mediastinum: Unremarkable. Normal mediastinal contour. Bones/joints: Multilevel spondylosis. No acute fracture. Vasculature: Thoracic aortic atherosclerosis. IMPRESSION: Minimal lateral right basilar hazy opacification (atelectasis and/or infiltrate). Electronically signed by: Zaki Rowell MD 08/30/2024 12:47 AM [facility] Due to temporary technical issues with the PACS/RightsFlow reporting system, reports are being aline d by the in-house radiologist without review as a courtesy to ensure prompt reporting the interpreting radiologist is fully responsible for the content of the report. Transcribed Date/Time: 08/30/2024 6:10 AM
--- NOTE | 2024-09-02 11:19 | EKG ---
Test Date: 2024-08-29 Test Time: 23:20:51 Billet Recorder: BEKA MEASUREMENT RESULTS: Intervals: Rate: 82 WY: 150 QRSD: 72 QT: 372 QTc: 434 [place]: P: 81 WY: 150 QRS: 72 T: 78 INTERPRETIVE STATEMENTS: Normal sinus rhythm Normal ECG Compared to ECG 08/01/2024 11:06:44 Sinus arrhythmia no longer present ST (T wave) deviation no longer present Electronically Signed On 09-02-24 11:14:23 GRINDING SUPERVISOR by Luis Alberto Reyes
== END 2024-08-30 04:09 | disposition home or self-care (01) ==
LOC: ER 22:37
DX: J18.9 Pneumonia, unspecified organism (principal); J47.9 Bronchiectasis, uncomplicated; R05.1 Acute cough; F32.9 Major depressive disorder, single episode, unspecified; Z79.899 Other long term (current) drug therapy; Z11.52 Encounter for screening for COVID-19; I10 Essential (primary) hypertension
CPT/HCPCS: 93005; 87070; 85025; 80048; 36415; 83735; 85610; 80076; 87081; 84484; 83690; 87807; 87804 ×2; 71260; 74177; 71045; 96375; 96374; 99284; 87811; Q9967; J2405

== ENCOUNTER 2025-06-09 09:48 | Inpatient (IN) | payer OTHER ==
[2025-06-09 10:40] LABS: Absolute Lymphocytes (CBC) 1.2 K/uL (0.7-4.9); Hematocrit 34.6 % (36.0-45.0); Hemoglobin 11.1 g/dL (12.0-15.0); MCH 25.8 pg (27.0-35.0); MCHC 32.0 g/dL (32.0-36.0); MCV 80.6 fL (80-100); MPV 9.8 fL (7.6-11.3); Nucleated RBC Absolute Count 0.0 (0-0); Nucleated Red Blood Cells % 0.0 % (0-0); RBC Red Blood Cell Count 4.30 M/uL (3.86-4.86); White Blood Count 7.90 thou/uL (4.3-10.9)
[2025-06-09 10:46] LABS: PT Prothrombin Time 13.5 SECONDS (10-13.0); Protime INR 1.2
[2025-06-09 11:01] LABS: ALT/SGPT 18 U/L (13-56); AST/SGOT 21 U/L (15-37); Albumin 3.5 g/dL (3.4-5.0); Albumin/Globulin Ratio 1.2 (1.1-1.8); Alkaline Phosphatase 85 U/L (45-117); Anion Gap 11.0 mEq/L (5.0-15.0); BUN Blood Urea Nitrogen 21 mg/dL (7-18); Globulin 2.9 g/dL (2.3-3.5); Glucose Level 109 mg/dL (74-106); Magnesium 2.1 mg/dL (1.6-2.4); NT PRO-BNP 404 pg/mL (<450); Potassium 4.0 mEq/L (3.5-5.1); Troponin High Sensitivity 19.0 pg/mL (<58.9)
[2025-06-09 11:01] LABS: Influenza A Ag Negative; Influenza B Ag Negative; SARS-CoV-2 Antigen Rapid Res Negative (Negative)
[2025-06-09 11:02] LABS: Bilirubin Indirect, Calculated 0.3 mg/dL (0.2-0.8)
[2025-06-09] MEDS ORDERED: ALBUTEROL 2.5 MG/3 ML NEB SOL ONE ×2 (11:02→12:05)
[2025-06-09] MEDS ORDERED: IPRATROPIUM BROM 0.5MG/2.5ML ONE ×2 (11:02→12:05)
--- NOTE | 2025-06-09 11:41 | RAD REPORT ---
Procedure: Chest Single View HISTORY: Shortness of breath COMPARISON: 2023 FINDINGS: The lungs appear clear of acute infiltrate. No significant pleural effusion noted. The heart is mildly enlarged IMPRESSION: No acute abnormality is displayed.
--- NOTE | 2025-06-09 11:59 | EDPHYS ---
Physician Documentation [facility] Name: Sahra High Age: 84 yrs Sex: Female : 1940 Arrival Date: 06/09/2025 Time: 09:48 Bed 17 Private MD: ED Physician Adriana Etienne HPI: 06/09 10:23 This 84 yrs old Female presents to ER via EMS with unknown complaint. sp3 10:23 84-year-old female with a history of asthma, prior pneumonia, depression, now presents sp3 to the ED via EMS for chief complaint asthma exacerbation and dyspnea despite having taken multiple nebulizer treatments. EMS gave further DuoNeb and Solu-Medrol IV which has helped. Patient is now improved with heart rate down into the 110 range and saturations at 100%. Patient denies any other symptoms including fever, headache, neck and throat pain, chest pain, abdominal pain, nausea, vomiting, diarrhea, syncope, known sick contacts, travel history, or any other signs or symptoms on ROS at this time.. Historical: - Allergies: 10:23 No Known Allergies; ar8 - Home Meds: 10:23 escitalopram oxalate 10 mg Oral tab 1 tab once daily [Active]; losartan 25 mg Oral tab ar8 1 tab 2 times per day [Active]; - PMHx: 10:23 Asthma; Depression; Hypertension; ar8 - PSHx: 10:23 hysterectomy; ar8 - Immunization history:: Adult Immunizations not up to date. - Infectious Disease History:: Denies. - Social history:: Smoking status: Patient denies any tobacco usage or history of. ROS: 10:24 Constitutional: Negative for fever, chills, and weight loss, Eyes: Negative for injury, sp3 pain, redness, and discharge, ENT: Negative for injury, pain, and discharge, Neck: Negative for injury, pain, and swelling, Cardiovascular: Negative for chest pain, palpitations, and edema, Abdomen/GI: Negative for abdominal pain, nausea, vomiting, diarrhea, and constipation, Back: Negative for injury and pain, MS/Extremity: Negative for injury and deformity, Skin: Negative for injury, rash, and discoloration, Neuro: Negative for headache, weakness, numbness, tingling, and seizure, Psych: Negative for depression, anxiety, suicide ideation, homicidal ideation, and hallucinations, Allergy/Immunology: Negative for hives, rash, and allergies, Endocrine: Negative for neck swelling, polydipsia, polyuria, polyphagia, and marked weight changes, 10:24 All other systems are negative, Exam: 10:25 Constitutional: This is a well developed, well nourished patient who is awake, alert, sp3 and in no acute distress. Head/Face: Normocephalic, atraumatic. Eyes: Pupils equal round and reactive to light, extra-ocular motions intact. Lids and lashes normal. Conjunctiva and sclera are non-icteric and not injected. Cornea within normal limits. Periorbital areas with no swelling, redness, or edema. Neck: Trachea midline, no thyromegaly or masses palpated, and no cervical lymphadenopathy. Supple, full range of motion without nuchal rigidity, or vertebral point tenderness. No Meningismus. Chest/axilla: Normal chest wall appearance and motion. Nontender with no deformity. No lesions are appreciated. Cardiovascular: Regular rate and rhythm with a normal S1 and S2. No gallops, murmurs, or rubs. Normal PMI, no JVD. No pulse deficits. Abdomen/GI: Soft, non-tender, with normal bowel sounds. No distension or tympany. No guarding or rebound. No evidence of tenderness throughout. Back: No spinal tenderness. No costovertebral tenderness. Full range of motion. Skin: Warm, dry with normal turgor. Normal color with no rashes, no lesions, and no evidence of cellulitis. MS/ Extremity: Pulses equal, no cyanosis. Neurovascular intact. Full, normal range of motion. Neuro: Awake and alert, GCS 15, oriented to person, place, time, and situation. Cranial nerves II-XII grossly intact. Motor strength 5/5 in all extremities. Sensory grossly intact. Cerebellar exam normal. Normal gait. Psych: Awake, alert, with orientation to person, place and time. Behavior, mood, and affect are within normal limits. 10:25 Respiratory: Bilateral wheezing at the lung bases right greater than left. Saturation 100%. Respiratory rate 24. Patient's work of breathing is mildly elevated., 10:45 ECG was reviewed by the Attending Physician. EKG demonstrates sinus tachycardia at 113 sp3 bpm with normal intervals, normal QRS, QTc of 458, normal axis, and nonspecific diffuse ST/T changes without evidence of acute ischemia. Vital Signs: 10:08 BP 160 / 98; Pulse 110; Resp 24; Temp 98.3(A); Pulse Ox 100% on 8L via neb tx; Weight ar8 39.92 kg; Height 4 ft. 11 in. ; Pain 0/10; 10:30 BP 141 / 96; Pulse 110; Resp 20; Pulse Ox 87% on R/A; Pain 0/10; ar8 11:45 Pulse Ox 89% on R/A; ar8 11:52 BP 139 / 90; Pulse 112; Resp 17; Pulse Ox 94% on 2 lpm NC; ar8 12:29 BP 135 / 77; Pulse 115; Resp 20; Pulse Ox 95% on 2 lpm NC; Pain 0/10; ar8 13:30 BP 130 / 67; Pulse 108; Resp 18; Pulse Ox 97% on 2 lpm NC; Pain 0/10; ar8 14:15 BP 152 / 87; Pulse 115; Resp 22; Pulse Ox 95% on 2 lpm NC; Pain 0/10; ar8 10:08 Body Mass Index 17.77 (39.92 kg, 149.86 cm) ar8 10:08 Pain Scale: Adult ar8 10:30 Pain Scale: Adult ar8 12:29 Pain Scale: Adult ar8 13:30 Pain Scale: Adult ar8 14:15 Pain Scale: Adult ar8 MDM: 10:15 Medical Screening Exam initiated sp3 10:25 Data reviewed: vital signs, nurses notes, old medical records, lab test result(s), EKG, sp3 radiologic studies. ED course: 84-year-old female with shortness of breath in the setting of asthma. Differential diagnosis includes asthma exacerbation, bronchitis, pneumonia, viral illness including COVID or influenza, among others. I am not highly suspicious of ACS, CHF or other complication. Workup will include standard EKG, chest x-ray and routine labs coupled with DuoNeb and Solu-Medrol which is already being given by EMS. Viral swabs also pending. Disposition pending workup and patient course.. 11:57 ED course: Will repeat nebulizers. Patient has a new O2 requirement of at least 4 L. sp3 Room air pulse oxygenation at 87-89%. Chest x-ray is clear. Antibiotics not indicated. Defer to inpatient team for further management of asthma symptoms.. 06/09 10:16 Order name: Basic Metabolic Panel; Complete Time: 11:19 sp3 06/09 10:16 Order name: CBC with Diff; Complete Time: 11:19 sp3 06/09 10:16 Order name: LFT's; Complete Time: 11:19 sp3 06/09 10:16 Order name: Magnesium; Complete Time: 11:19 sp3 06/09 10:16 Order name: NT PRO-BNP; Complete Time: 11:19 sp3 06/09 10:16 Order name: PT-INR; Complete Time: 11:19 sp3 06/09 10:16 Order name: Troponin HS; Complete Time: 11:19 sp3 06/09 10:24 Order name: COVID-19 Ag + Flu A+B Ag; Complete Time: 11:19 sp3 06/09 12:17 Order name: Basic Metabolic Panel EDMS 06/09 12:17 Order name: Basic Metabolic Panel EDMS 06/09 12:17 Order name: Basic Metabolic Panel EDMS 06/09 12:17 Order name: Basic Metabolic Panel EDMS 06/09 12:17 Order name: Basic Metabolic Panel EDMS 06/09 12:17 Order name: CBC with Automated Diff EDMS 06/09 12:18 Order name: CBC with Automated Diff EDMS 06/09 12:18 Order name: CBC with Automated Diff EDMS 06/09 12:18 Order name: CBC with Automated Diff EDMS 06/09 12:18 Order name: CBC with Automated Diff EDMS 06/09 10:16 Order name: XRAY Chest (1 view); Complete Time: 11:42 sp3 06/09 10:16 Order name: EKG; Complete Time: 10:16 sp3 06/09 10:16 Order name: Cardiac monitoring; Complete Time: 10:31 sp3 06/09 10:16 Order name: EKG - Nurse/Tech; Complete Time: 10:41 sp3 06/09 10:16 Order name: IV Saline Lock; Complete Time: 10:31 sp3 06/09 10:16 Order name: Labs collected and sent; Complete Time: 10:31 sp3 06/09 10:16 Order name: O2 Per Protocol; Complete Time: 10:31 sp3 06/09 10:16 Order name: O2 Sat Monitoring; Complete Time: 10: sp3 Administered Medications: 11:05 Drug: DuoNeb Nebulize (3:1) (2.5 mg - 0.5 mg) 3 ml Nebulizer once Route: Nebulizer; ar8 11:30 Follow up: Response: No adverse reaction; Marked relief of symptoms ar8 12:07 Drug: DuoNeb Nebulize (3:1) (2.5 mg - 0.5 mg) 3 ml Nebulizer once Route: Nebulizer; ar8 12:35 Follow up: Response: No adverse reaction; Marked relief of symptoms ar8 Disposition Summary: 06/09/25 11:58 Hospitalization Ordered Notes: Hospitalization Status: Observation sp3 Provider: Faisal Downs sp3 Location: Telemetry/MedSurg (observation) sp3 Condition: Stable sp3 Problem: an acute exacerbation sp3 Symptoms: have worsened sp3 Bed/Room Type: Standard sp3 Room Assignment: [facility](06/09/25 13:51) bd Diagnosis - Asthma exacerbation, difficulty breathing, hypoxia sp3 Forms: - Medication Reconciliation Form sp3 - SBAR form sp3 - Leadership Thank You Letter sp3 Signatures: Dispatcher [employer] EDGretchen Lovell bd Adriana Etienne MD MD sp3 Ranjan Jim RN RN ar8 Corrections: (The following items were deleted from the chart) 13:51 11:58 sp3 bd
--- NOTE | 2025-06-09 11:59 | ER ---
Nurse's Notes [facility] Name: Sahra High Age: 84 yrs Sex: Female : 1940 Arrival Date: 06/09/2025 Time: 09:48 Bed 17 Private MD: Diagnosis: Asthma exacerbation, difficulty breathing, hypoxia Presentation: 06/09 10:08 Chief complaint: Patient states: C/O difficulty breathing since yesterday. Per EMS, ar8 patient was experiencing respiratory distress and received Solu-Medrol 250mg IV and two A\T\A neb tx en route. 10:08 Method Of Arrival: EMS: [facility] ar8 10:08 Coronavirus screen: At this time, the client does not indicate any symptoms associated ar8 with coronavirus-19. Ebola Screen: No symptoms or risks identified at this time. Initial Sepsis Screen:. Initial Sepsis Screen: Does the patient meet any 2 criteria? RR > 20 per min. Does the patient have a suspected source of infection? No. Patient's initial sepsis screen is negative. Risk Assessment: Do you want to hurt yourself or someone else? Patient reports no desire to harm self or others. Onset of symptoms was June 08, 2025. 10:08 Acuity: LA NENA 3 ar8 Triage Assessment: 10:10 General: Appears in no apparent distress. Behavior is calm, cooperative. Pain: Denies ar8 pain. 10:10 EENT: No signs and/or symptoms were reported regarding the EENT system. Neuro: Level of ar8 Consciousness is awake, alert, obeys commands, Oriented to person, place, time, situation. Cardiovascular: Patient's skin is warm and dry. Rhythm is sinus tachycardia. Respiratory: Airway is patent Respiratory effort is even, unlabored, Respiratory pattern is tachypnea Breath sounds with wheezes bilaterally. in left posterior lower lobe and right posterior lower lobe. GI: No signs and/or symptoms were reported involving the gastrointestinal system. : No signs and/or symptoms were reported regarding the genitourinary system. Derm: No signs and/or symptoms reported regarding the dermatologic system. Musculoskeletal: No signs and/or symptoms reported regarding the musculoskeletal system. Historical: - Allergies: 10:23 No Known Allergies; ar8 - Home Meds: 10:23 escitalopram oxalate 10 mg Oral tab 1 tab once daily [Active]; losartan 25 mg Oral tab ar8 1 tab 2 times per day [Active]; - PMHx: 10:23 Asthma; Depression; Hypertension; ar8 - PSHx: 10:23 hysterectomy; ar8 - Immunization history:: Adult Immunizations not up to date. - Infectious Disease History:: Denies. - Social history:: Smoking status: Patient denies any tobacco usage or history of. Screenin:10 [facility] ED Fall Risk Assessment (Adult) History of falling in the last 3 months, ar8 including since admission No falls in past 3 months (0 pts) Confusion or Disorientation No (0 pts) Intoxicated or Sedated No (0 pts) Impaired Gait No (0 pts) Mobility Assist Device Used No (0 pt) Altered Elimination No (0 pt) Score/Fall Risk Level 0 - 2 = Low Risk Oriented to surroundings, Maintained a safe environment. Abuse screen: Denies threats or abuse. Nutritional screening: No deficits noted. Tuberculosis screening: No symptoms or risk factors identified. Assessment: 10:29 Reassessment: See triage assessment. ar8 11:25 Respiratory: Reports shortness of breath on exertion Patient ambulated to restroom. SOB ar8 noted. 11:53 Reassessment: Pt noted to be 89% on room air, gave VO to place pt on NC. ar8 12:29 Reassessment: Patient and/or family updated on plan of care and expected duration. Pain ar8 level reassessed. Patient is alert, oriented x 3, equal unlabored respirations, skin warm/dry/pink. Respiratory: Airway is patent Respiratory effort is even, unlabored, Respiratory pattern is regular, symmetrical. Vital Signs: 10:08 BP 160 / 98; Pulse 110; Resp 24; Temp 98.3(A); Pulse Ox 100% on 8L via neb tx; Weight ar8 39.92 kg; Height 4 ft. 11 in. ; Pain 0/10; 10:30 BP 141 / 96; Pulse 110; Resp 20; Pulse Ox 87% on R/A; Pain 0/10; ar8 11:45 Pulse Ox 89% on R/A; ar8 11:52 BP 139 / 90; Pulse 112; Resp 17; Pulse Ox 94% on 2 lpm NC; ar8 12:29 BP 135 / 77; Pulse 115; Resp 20; Pulse Ox 95% on 2 lpm NC; Pain 0/10; ar8 13:30 BP 130 / 67; Pulse 108; Resp 18; Pulse Ox 97% on 2 lpm NC; Pain 0/10; ar8 14:15 BP 152 / 87; Pulse 115; Resp 22; Pulse Ox 95% on 2 lpm NC; Pain 0/10; ar8 10:08 Body Mass Index 17.77 (39.92 kg, 149.86 cm) ar8 10:08 Pain Scale: Adult ar8 10:30 Pain Scale: Adult ar8 12:29 Pain Scale: Adult ar8 13:30 Pain Scale: Adult ar8 14:15 Pain Scale: Adult ar8 ED Course: 10:10 Arm band placed on left wrist. ar8 10:10 Bed in low position. Call light in reach. Side rails up X2. Provided Education on: plan ar8 of care, diagnostics and estimated wait time. Client placed on continuous cardiac and pulse oximetry monitoring. NIBP monitoring applied. 10:10 No provider procedures requiring assistance completed. Maintain EMS IV. Dressing ar8 intact. Good blood return noted. Site clean \T\ dry. Gauge \T\ site: 20 R FA. Flushed with 10 mL NS. 10:15 Patient arrived in ED. bd 10:15 Adriana Etienne MD is Attending Physician. sp3 10:19 Ranjan Jim, PAMELLA is Primary Nurse. ar8 10:23 Triage completed. ar8 10:38 EKG done, by ED staff, reviewed by Adriana Etienne MD. ar8 11:30 XRAY Chest (1 view) In Process Unspecified. EDMS 11:58 Faisal Downs is Hospitalizing Provider. sp3 14:29 Patient admitted, IV remains in place. ar8 Administered Medications: 11:05 Drug: DuoNeb Nebulize (3:1) (2.5 mg - 0.5 mg) 3 ml Nebulizer once Route: Nebulizer; ar8 11:30 Follow up: Response: No adverse reaction; Marked relief of symptoms ar8 12:07 Drug: DuoNeb Nebulize (3:1) (2.5 mg - 0.5 mg) 3 ml Nebulizer once Route: Nebulizer; ar8 12:35 Follow up: Response: No adverse reaction; Marked relief of symptoms ar8 Medication: 10:10 VIS not applicable for this client. ar8 Outcome: 11:58 Decision to Hospitalize by Provider. sp3 14:29 Admitted to Med/surg accompanied by tech, via wheelchair, room 416, with chart, ar8 14:29 Admitted to Med/surg Report called to faxed to 4th floor 14:29 Condition: stable 14:29 Discharge instructions given to N/A 14:30 Patient left the ED. ar8 Signatures: Dispatcher [employer] EDMS Gretchen Wing Setul, MD MD sp3 Ranjan Jim, RN RN ar8
[2025-06-09] MEDS ORDERED: ONDANSETRON 4 MG/2 ML VIAL IV PRN (12:13)
--- NOTE | 2025-06-09 15:30 | P.HP ---
Certification for Inpatient Patient admitted to: Inpatient With expected LOS: >2 Midnights Patient will require the following post-hospital care: None Practitioner: I am a practitioner with admitting privileges, knowledge of patient current condition, hospital course, and medical plan of care. Services: Services provided to patient in accordance with Admission requirements found in Title 42 Section 412.3 of the Code of Federal Regulations Patient History Date of Service: 06/09/25 Reason for admission: Athma exacerbation History of Present Illness: 84-year-old female with history of asthma, hypertension, depression presents to the emergency department chief complaint of shortness of breath. She reports worsening symptoms over the course of the last 2 to 3 days. In regards to her asthma she has an inhaler and nebulizer at home which has been need to use more often recently. Patient was evaluated in the emergency department her labs were significant for a normal white blood cell count hemoglobin of 11.1 hematocrit 34.6 viral swabs are negative and chest x-ray is unremarkable. Patient some improvement in her symptoms with nebulizers and steroids but still is requiring nasal cannula oxygen to maintain her saturations which is not her baseline. Patient be admitted for further evaluation and management of suspected asthma exacerbation Allergies No Known Drug Allergies Allergy (Verified 12/04/18 01:27) Unknown No Known Allergies Allergy (Uncoded 07/31/17 21:55) Unknown Home Medications: Albuterol Neb [Proventil 0.083% Neb Soln] 1 inh IN QID 12/03/18 Candesartan Cilexetil [Atacand] 4 mg PO DAILY 12/03/18 Escitalopram Oxalate [Lexapro] 10 mg PO DAILY 12/03/18 Methylprednisolone [Medrol dosepack] 4 mg PO DIRECTED #1 gutierrez 12/04/18 Oseltamivir [Tamiflu*] 75 mg PO BID #8 cap 12/04/18 - Past Medical/Surgical History Diabetic: No -: COPD -: Asthma -: HTN -: GERD -: HYST -: Trigger finger release x5 - Social History Alcohol use: No CD- Drugs: No Caffeine use: Yes Place of Residence: Home Review of Systems 10-point ROS is otherwise unremarkable Respiratory: Cough, Shortness of Breath, SOB with Excertion, Sputum, Wheezing Physical Examination - Vital Signs Temperature: 98.3 F Blood Pressure: 152/87 Pulse: 115 Respirations: 22 - Physical Exam General: Alert, In no apparent distress, Oriented x3 HEENT: Atraumatic, PERRLA, Mucous membr. moist/pink Neck: Supple, 2+ carotid pulse no bruit, No LAD Respiratory: Expiratory wheezes Cardiovascular: Regular rate/rhythm, Normal S1 S2 Gastrointestinal: Normal bowel sounds, No tenderness Musculoskeletal: No tenderness Integumentary: No rashes Neurological: Normal gait, Normal speech, Normal strength at 5/5 x4 extr, Normal affect - Studies Laboratory Data (last 24 hrs) 06/09/25 06/09/25 06/09/25 10:23 10:23 10:23 WBC 7.90 Hgb 11.1 L Hct 34.6 L Plt Count 277 PT 13.5 H INR 1.20 Sodium 140 Potassium 4.0 BUN 21 H Creatinine 1.02 Glucose 109 H Magnesium 2.1 Total Bilirubin 0.5 AST 21 ALT 18 Alkaline Phosphatase 85 Assessment and Plan - Plan Assessment: Asthma exacerbation Acute hypoxic respiratory failure secondary to above Depression Hypertension Plan: Asthma exacerbation Acute hypoxic respiratory failure secondary to above Continue steroids, nebulizer treatments, inhalers Pulmonology consultation Wean oxygen as tolerated Depression Hypertension Continue home medications DVT PPX:Lovenox Code status:Full Discharge Plan: Home Plan to discharge in: 48 Hours - Advance Directives Does patient have a Living Will: Yes Does patient have a Durable POA for Healthcare: Yes - Code Status/Comfort Care Code Status Assessed: Yes (Full code) Critical Care: No Time Spent Managing Pts Care (In Minutes): 70
[2025-06-09 16:09] VITALS: BMI 17.7
[2025-06-09] MEDS: FLU (Fluarix) 25-26 (6MOS UP)/PF 45 MCG/0.5 ML Syringe IM ONE (16:15)
[2025-06-09] MEDS: predniSONE 20 MG TAB PO SCH (20:17)
[2025-06-09] MEDS: HYDROCODONE/CHLORPHEN 5 ML/OSYR PO PRN (20:17)
[2025-06-09] MEDS: LOSARTAN POTASSIUM 50 MG TABLET PO SCH (20:17)
[2025-06-09] MEDS: DULERA 100/5 (MOMETASONE/FORMOTEROL) INHALER IH SCH (21:00)
[2025-06-10 05:26] LABS: Absolute Lymphocytes (CBC) 0.4 K/uL (0.7-4.9); Hematocrit 30.9 % (36.0-45.0); Hemoglobin 10.2 g/dL (12.0-15.0); MCH 26.6 pg (27.0-35.0); MCHC 33.0 g/dL (32.0-36.0); MCV 80.8 fL (80-100); MPV 10.7 fL (7.6-11.3); Nucleated RBC Absolute Count 0.0 (0-0); Nucleated Red Blood Cells % 0.0 % (0-0); RBC Red Blood Cell Count 3.83 M/uL (3.86-4.86); White Blood Count 3.90 thou/uL (4.3-10.9)
[2025-06-10 05:47] LABS: Anion Gap 9.2 mEq/L (5.0-15.0); BUN Blood Urea Nitrogen 34.0 mg/dL (7-18); Glucose Level 185.0 mg/dL (74-106); Potassium 4.2 mEq/L (3.5-5.1)
[2025-06-10] MEDS: ALBUTEROL 2.5 MG/3 ML NEB SOL NEB PRN (05:55)
[2025-06-10] MEDS: IPRATROPIUM BROM 0.5MG/2.5ML NEB PRN (05:55)
[2025-06-10 06:09] LABS: Differential Total Cells Count 100; Segmented Neutrophils 83 % (40-80)
[2025-06-10 06:10] LABS: Blood Morphology Comment NOT SEEN (NOT SEEN)
[2025-06-10] MEDS: ACETAMINOPHEN 325 MG TABLET PO PRN (07:21)
[2025-06-10] MEDS: ENOXAPARIN 30 MG/0.3 ML SQ SCH (08:01)
[2025-06-10] MEDS: ESCITALOPRAM 20 MG TAB PO SCH (08:02)
[2025-06-10] MEDS ORDERED: DULERA 200/5 (MOMETASONE/FORMOTEROL) INHALER IH SCH (09:00)
[2025-06-10] MEDS: AZITHROMYCIN 250 MG TAB PO SCH (09:31)
--- NOTE | 2025-06-10 12:32 | P.CNS ---
Date of Consult: 06/10/25 Reason for Consult: Asthma exacerbation Chief Complaint: Athma exacerbation History of Present Illness: Patient is 84 years of age with a history of obstructive airways disease uses only beta agonist apparently she tried some steroid inhalers in the past did not really help has been having problems for the past year got worse since she moved into the apartment was exposed to mold has lost significant amount of weight seeing a broomcorn scraper in [place] never smoked Allergies No Known Drug Allergies Allergy (Verified 12/04/18 01:27) Unknown No Known Allergies Allergy (Uncoded 07/31/17 21:55) Unknown Home Medications: Albuterol Neb [Proventil 0.083% Neb Soln] 1 inh IN Q4HP PRN 12/03/18 Escitalopram Oxalate [Lexapro] 10 mg PO DAILY 12/03/18 Ipratropium Neb [Atrovent*] 1 amp NEB Q4HP PRN 06/09/25 Losartan Potassium [Cozaar] 25 mg PO BID 06/09/25 - Past Medical/Surgical History Diabetic: No -: COPD -: Asthma -: HTN -: GERD -: HYST -: Trigger finger release x5 - Social History Smoking Status: Current every day smoker Alcohol use: No CD- Drugs: No Caffeine use: Yes Place of Residence: Home Review of Systems 10-point ROS is otherwise unremarkable Physical Examination Temp Pulse Resp BP Pulse Ox 98.1 F 81 14 130/66 99 06/10/25 12:00 06/10/25 12:00 06/10/25 12:00 06/10/25 12:00 06/10/25 12:00 General: Alert, Oriented x3 Neck: Supple Respiratory: Clear to auscultation bilaterally, Diminished Cardiovascular: No edema, Regular rate/rhythm, Normal S1 S2 - Problems (1) Asthma exacerbation Current Visit: No Status: Acute Plan: Patient is 84 years of age admitted with an asthma exacerbation she only uses beta agonist at home recommend adding preventative trial of Advair or Dulera for now patient stable for discharge on low-dose prednisone 10 mg twice a day for 5 to 7 days patient is mildly anemic chest x-ray shows COPD changes stable for discharge Qualifiers: Asthma severity: moderate
--- NOTE | 2025-06-10 12:35 | P.PN ---
Date of Service: 06/10/25 Subjective: feels better breathing easier has flare up every ~6months Physical Exam: Gen: Alert, Oriented, NAD CV: Regular rate and rhythm, no edema Pulm: Nonlabored respirations on 2L NC, mild b/l wheeze Neuro: Normal strength, normal affect Problem List: Acute hypoxic respiratory failure secondary to Acute Asthma exacerbation Hypertension GERD Depression Acute hypoxic respiratory failure secondary to Acute Asthma exacerbation on admission, presents with worsening shortness of breath and wheeze CXR negative. Labs unremarkable. Feels improvement with steroids, nebulizer treatments Continue oral prednisone, duonebs oral Azithromycin added to cover possible superimposed infection wean oxygen as tolerated Hypertension GERD Depression confirm home meds, restart as appropriate resume home losartan, lexapro VTE: Lovenox Code: Full Dispo: Home 1-2 days Pending off oxygen
[2025-06-10] MEDS: ENSURE ENLIVE 237 ML CAN PO SCH (20:07)
[2025-06-11 06:07] LABS: Absolute Lymphocytes (CBC) 0.5 K/uL (0.7-4.9); Hematocrit 29.6 % (36.0-45.0); Hemoglobin 9.7 g/dL (12.0-15.0); MCH 26.5 pg (27.0-35.0); MCHC 32.9 g/dL (32.0-36.0); MCV 80.6 fL (80-100); MPV 10.7 fL (7.6-11.3); Nucleated RBC Absolute Count 0.0 (0-0); Nucleated Red Blood Cells % 0.0 % (0-0); RBC Red Blood Cell Count 3.67 M/uL (3.86-4.86); White Blood Count 10.40 thou/uL (4.3-10.9)
[2025-06-11 06:19] LABS: Anion Gap 10.9 mEq/L (5.0-15.0); BUN Blood Urea Nitrogen 35.0 mg/dL (7-18); Glucose Level 135.0 mg/dL (74-106); Potassium 4.9 mEq/L (3.5-5.1)
[2025-06-11 08:56] LABS: Blood Morphology Comment NOT SEEN (NOT SEEN); White Blood Cell Scan OK (OK)
[2025-06-11] MEDS: ENOXAPARIN 30 MG/0.3 ML SQ SCH (09:00)
--- NOTE | 2025-06-11 09:19 | P.DS ---
Admission Date: 06/09/25 Discharge Date: 06/11/25 Reason for Admission: Athma exacerbation Consultations: Pulmonology - Dr. Araujo Brief History of Present Illness: 84yo F, PMH: ASthma, hypertension, depression Patient presents to the emergency department chief complaint of shortness of breath. She reports worsening symptoms over the course of the last 2 to 3 days. In regards to her asthma she has an inhaler and nebulizer at home which has been need to use more often recently. Patient was evaluated in the emergency department her labs were significant for a normal white blood cell count hemoglobin of 11.1 hematocrit 34.6 viral swabs are negative and chest x-ray is unremarkable.Patient some improvement in her symptoms with nebulizers and steroids but still is requiring nasal cannula oxygen to maintain her saturations which is not her baseline. Patient be admitted for further evaluation and management of suspected asthma exacerbation Hospital Course: Problem List: Acute hypoxic respiratory failure secondary to Acute Asthma exacerbation Hypertension GERD Depression Physician discharge instructions: Patient presented with worsening shortness of breath and wheeze secondary to acute asthma exacerbation. Chest xray showed COPD changes. Labwork on admission was unremarkable. She reports using an inhaler and nebulizer at home which she had been using more frequently. She had improvement with nebulizer treatments and steroids. Patient was feeling better, breathing more comfortably on room air, and was deemed stable for discharge. Recommend following up with Dr. Araujo, inclusion manager in a few weeks for further management. Dr. Araujo had recommended short course of steroids in addition to trial of advair inhaler. Will also send prescription for oral Azithromycin to cover possible underlying infection. Medications: Prednisone 10mg twice daily for 5 days Azithromycin Prescription for Advair sent. In unable to fill or not covered by insurance, follow up with Access Services Assistant or PCP for further management. Patient will also be going home with dulera inhaler in hand in case she cannot fill Advair. Take Dulera only if you can't fill Advair prescription. Follow up: PCP 3-5 days Pulmonologis in a few weeks Please call to schedule / confirm appointments Physical Exam: Gen: Alert, Oriented, NAD CV: Regular rate and rhythm, no edema Pulm: Nonlabored respirations on room air, clear bilaterally Neuro: Normal strength, normal affect Vital Signs/Physical Exam: Temp Pulse Resp BP Pulse Ox 97.8 F 77 16 154/77 H 93 06/11/25 08:00 06/11/25 08:00 06/11/25 08:00 06/11/25 08:00 06/11/25 08:00 Laboratory Data at Discharge: WBC 10.40 thou/uL (4.3-10.9) 06/11/25 05:11 Hgb 9.7 g/dL (12.0-15.0) L 06/11/25 05:11 Hct 29.6 % (36.0-45.0) L 06/11/25 05:11 Plt Count 240 thou/uL (152-406) 06/11/25 05:11 PT 13.5 SECONDS (10-13.0) H 06/09/25 10:23 INR 1.20 06/09/25 10:23 Sodium 141 mEq/L (136-145) 06/11/25 05:11 Potassium 4.9 mEq/L (3.5-5.1) D 06/11/25 05:11 BUN 35 mg/dL (7-18) H 06/11/25 05:11 Creatinine 1.25 mg/dL (0.55-1.02) H 06/11/25 05:11 Glucose 135 mg/dL (74-106) H 06/11/25 05:11 Magnesium 2.1 mg/dL (1.6-2.4) 06/09/25 10:23 Total Bilirubin 0.5 mg/dL (0.2-1.0) 06/09/25 10:23 AST 21 U/L (15-37) 06/09/25 10:23 ALT 18 U/L (13-56) 06/09/25 10:23 Alkaline Phosphatase 85 U/L (45-117) 06/09/25 10:23 Home Medications: Albuterol Neb [Proventil 0.083% Neb Soln] 1 inh IN Q4HP PRN 12/03/18 Escitalopram Oxalate [Lexapro] 10 mg PO DAILY 12/03/18 Ipratropium Neb [Atrovent*] 1 amp NEB Q4HP PRN 06/09/25 Losartan Potassium [Cozaar] 25 mg PO BID 06/09/25 Azithromycin 250 mg PO DAILY 3 Days #3 tab 06/11/25 Fluticasone Propion/Salmeterol [Advair 250-50 Diskus] 1 each IH BID 30 Days #1 inh 06/11/25 predniSONE [Deltasone*] 10 mg PO BID 5 Days #10 tab 06/11/25 New Medications: Fluticasone Propion/Salmeterol [Advair 250-50 Diskus] 1 each IH BID 30 Days #1 inh Azithromycin 250 mg PO DAILY 3 Days #3 tab predniSONE [Deltasone*] 10 mg PO BID 5 Days #10 tab Physician Discharge Instructions: Physician discharge instructions: Patient presented with worsening shortness of breath and wheeze secondary to acute asthma exacerbation. Chest xray showed COPD changes. Labwork on admission was unremarkable. She reports using an inhaler and nebulizer at home which she had been using more frequently. She had improvement with nebulizer treatments and steroids. Patient was feeling better, breathing more comfortably on room air, and was deemed stable for discharge. Recommend following up with Dr. Araujo, inclusion manager in a few weeks for further management. Dr. Araujo had recommended short course of steroids in addition to trial of advair inhaler Will also send prescription for oral Azithromycin to cover possible underlying infection. Medications: Prednisone 10mg twice daily for 5 days Azithromycin Prescription for Advair sent. In unable to fill or not covered by insurance, follow up with Dr. Araujo or PCP for further management. Patient will also be going home with dulera inhaler in hand in case she cannot fill Advair. Take Dulera only if you can't fill Advair prescription. Follow up: PCP 3-[address] Araujo in a few weeks Please call to schedule / confirm appointments Followup: NONE,NONE [Primary Care Provider] - Time spent managing pt's care (in minutes): 45
[2025-06-11 16:48] VITALS: O2SAT 93
[2025-06-11 16:57] VITALS: BP 145/64; TEMP 98
== END 2025-06-11 17:24 | disposition home or self-care (01) | DRG 189 ==
LOC: ER 09:48 → 4TH 14:32
PROVIDERS: ADMIT Internal Medicine; ATTEND Hospitalist
DX: J96.01 Acute respiratory failure with hypoxia (principal); J45.41 Moderate persistent asthma with (acute) exacerbation; F32.A Depression, unspecified; I10 Essential (primary) hypertension; K21.9 Gastro-esophageal reflux disease without esophagitis; Z11.52 Encounter for screening for COVID-19; Z79.899 Other long term (current) drug therapy; Z90.710 Acquired absence of both cervix and uterus
CPT/HCPCS: 36415; 71045; 80048; 80076; 83735; 83880; 84484; 85025; 85610; 87428; 93005; 94640; 99285; J1650; J3535; J7512; J7613; J7644